=== PATIENT | male | born 1955 ===

== ENCOUNTER 2017-05-01 19:13 | Inpatient (IN) | payer OTHER ==
--- NOTE | 2017-05-01 20:14 | C.PDOC ---
History Of Present Illness 61 year old male presents to the ED c/o abdominal pain that started this afternoon, pain is mostly located in the lower quadrants B/L. Patient denies any nausea, vomit, dysuria, hematuria, CP, SOB, back pain. Time Seen by Provider: 05/01/17 20:16 Chief Complaint (Nursing): Abdominal Pain History Per: Patient History/Exam Limitations: no limitations Onset/Duration Of Symptoms: Hrs Current Symptoms Are (Timing): Still Present Location Of Pain/Discomfort: RLQ, LLQ Radiation Of Pain To:: None Quality Of Discomfort: "Pain" Associated Symptoms: denies: Fever, Nausea, Vomiting, Diarrhea, Back Pain, Urinary Symptoms Exacerbating Factors: None Alleviating Factors: None Recent travel outside of the [place]: No Additional History Per: Patient Past Medical History Reviewed: Historical Data, Nursing Documentation, Vital Signs Vital Signs: Last Vital Signs Temp 101.1 F H 05/01/17 23:19 Pulse 88 05/01/17 23:19 Resp 18 05/01/17 23:19 BP 122/70 05/01/17 23:19 Pulse Ox 97 05/01/17 23:19 - Medical History PMH: Kidney Stones Surgical History: No Surg Hx Family History: States: Unknown Family Hx - Social History Hx Alcohol Use: No Hx Substance Use: No - Immunization History Hx Tetanus Toxoid Vaccination: No Hx Influenza Vaccination: No Hx Pneumococcal Vaccination: No Review Of Systems Constitutional: Negative for: Fever, Chills Cardiovascular: Negative for: Chest Pain, Palpitations Respiratory: Negative for: Cough, Shortness of Breath Gastrointestinal: Positive for: Abdominal Pain. Negative for: Nausea, Vomiting , Diarrhea, Constipation Genitourinary: Negative for: Dysuria, Hematuria Musculoskeletal: Negative for: Back Pain Skin: Negative for: Rash Neurological: Negative for: Weakness, Numbness Physical Exam - Physical Exam Appears: Non-toxic, No Acute Distress Skin: Normal Color, Warm, Dry Head: Atraumatic, Normacephalic Eye(s): bilateral: Normal Inspection Nose: No Discharge, No Deformity Oral Mucosa: Moist Neck: Normal ROM, Supple Chest: Symmetrical Cardiovascular: Rhythm Regular, No Murmur Respiratory: Normal Breath Sounds, No Rales, No Rhonchi, No Wheezing Gastrointestinal/Abdominal: Soft, Tenderness (RLQ), No Guarding, No Rebound Back: No CVA Tenderness Extremity: Normal ROM, No Pedal Edema, No Calf Tenderness, No Deformity, No Swelling Neurological/Psych: Oriented x3, Normal Speech, Normal Cognition Gait: Steady ED Course And Treatment - Laboratory Results Result Diagrams: 05/01/17 20:26 05/01/17 20:26 O2 Sat by Pulse Oximetry: 100 (On RA) Pulse Ox Interpretation: Normal Medical Decision Making Medical Decision Making: Impression: abdominal pain Plan: * Labs * IV fluids * Blood culture * Urine culture * UA Disposition Discussed With DrJuan Antonio: Jerson Cooper Doctor Will See Patient In The: Hospital Counseled Patient/Family Regarding: Diagnosis - Disposition Disposition: HOSPITALIZED Disposition Time: 23:36 Condition: STABLE Forms: [facility] (Iranian) - POA Present On Arrival: None - Clinical Impression Clinical Impression: Abdominal pain, Diverticulitis of sigmoid colon - Scribe Statement The provider has reviewed the documentation as recorded by the Scribe Fermin Sierra All medical record entries made by the Scribe were at my direction and personally dictated by me. I have reviewed the chart and agree that the record accurately reflects my personal performance of the history, physical exam, medical decision making, and the department course for this patient. I have also personally directed, reviewed, and agree with the discharge instructions and disposition.
[2017-05-01] MEDS ORDERED: Sodium Chloride 0.9% 1,000 ML IV ONE ×2 (20:16→20:17)
[2017-05-01] MEDS ORDERED: Iohexol 240 (50 ml) PO ONE (20:19)
[2017-05-01] MEDS ORDERED: Piperacillin/Tazobact 3.375 gm 100 ML IVPB STA (20:20)
[2017-05-01 20:21] LABS: URINE BACTERIA RARE (<OCC); URINE BILIRUBIN NEGATIVE (NEGATIVE); URINE BLOOD NEGATIVE (NEGATIVE); URINE CLARITY Clear (Clear); URINE COLOR Yellow (YELLOW); URINE GLUCOSE (UA) NORMAL (Normal); URINE LEUKOCYTE ESTERASE NEG Leu/uL (Negative); URINE NITRATE NEGATIVE (NEGATIVE); URINE PROTEIN NEGATIVE (NEGATIVE)
[2017-05-01 20:30] LABS: BASO # 0.1 K/uL (0.0-0.2); BASO % 0.6 % (0.0-2.0); EOS % 0.3 % (0.0-4.0); HEMOGLOBIN 16.9 g/dL (12.0-18.0); LYMPH # 1.4 K/uL (1.0-4.3); LYMPH % 9.2 % (20.0-40.0); MEAN CELL VOLUME 87.7 fL (80.0-94.0); MEAN CORPUSCULAR HGB CONC 34.2 g/dL (33.0-37.0); MEAN PLATELET VOLUME 9.4 fL (7.2-11.7); MONO # 1.5 K/uL (0.0-0.8); MONO % 9.8 % (0.0-10.0); NEUT # 12.2 K/uL (1.8-7.0); NEUT % 80.1 % (50.0-75.0); NRBC % 0.1 % (0.0-2.0); PLATELET COUNT 209 K/uL (130-400); RBC 5.62 Mil/uL (4.40-5.90); WHITE BLOOD COUNT 15.2 K/uL (4.8-10.8)
[2017-05-01] MEDS ORDERED: Iohexol 240 (50 ml) ONE (20:34)
[2017-05-01] MEDS ORDERED: Sodium Chloride 0.9% 1,000 ML ONE (20:34)
[2017-05-01 20:44] LABS: ALB/GLOB RATIO 1.1 (1.0-2.1); ALBUMIN 4.3 g/dL (3.5-5.0); ALT/SGPT 59 U/L (21-72); AST/SGOT 29 U/L (17-59); BLOOD UREA NITROGEN 13 mg/dL (9-20); CALCIUM 9.7 mg/dl (8.6-10.4); GFR AFRICAN-AMERICAN > 60; GFR NON-AFRICAN AMERICAN > 60; LIPASE 172 U/L (23-300)
[2017-05-01 20:49] LABS: BANDS 1 % (0-2); LYMPHOCYTE 5 % (20-40); MONOCYTE 8 % (0-10); NEUTROPHIL 85 % (50-75); PLATELET ESTIMATE NORMAL (NORMAL); REACTIVE LYMPHOCYTES 1 % (0-0); TOTAL CELLS COUNTED 100
[2017-05-01] MEDS ORDERED: Iohexol 300 100 ML IJ ONE (20:58)
--- NOTE | 2017-05-01 23:20 | CT ---
EXAM: CT Abdomen and Pelvis With Intravenous Contrast EXAM DATE/TIME: 05/01/2017 8:18 PM CLINICAL HISTORY: 61 years old, male; Pain; Abdominal pain; Localized; Lower; Additional info: Abd pain TECHNIQUE: Axial computed tomography images of the abdomen and pelvis with intravenous contrast. All CT scans at this facility use one or more dose reduction techniques, viz.: automated exposure control; ma/kV adjustment per patient size (including targeted exams where dose is matched to indication; i.e. head); or iterative reconstruction technique. Coronal and sagittal reformatted images were created and reviewed. CONTRAST: 100 mL of omnipaque 300 administered intravenously. COMPARISON: There are no prior studies for comparison. FINDINGS: Lower thorax: Heart size is normal. There is a small hiatal hernia. There is minimal atelectasis/scarring at the lung bases. The there is a small hiatal hernia. ABDOMEN: Liver: unremarkable Gallbladder and bile ducts: unremarkable Pancreas: unremarkable Spleen: unremarkable Adrenals: Right adrenal is unremarkable. There is nodular thickening of the left adrenal. Kidneys and ureters: There is a small nonobstructing left renal stone. There is a low attenuation left renal lesion too small to characterize possibly small cyst.There is no pelvocaliectasis or ureterectasis. Stomach and bowel: Stomach is almost empty. Rotation is normal. There is a small duodenal diverticulum. There is no small bowel obstruction. Ileocecal region is unremarkable.Appendix and terminal ileum are unremarkable. Colon is incompletely distended. There is diverticulosis. There is sigmoid diverticulitis. There is inflammation and edema adjacent to the inflamed sigmoid loop. There is a small amount of mesenteric venous gas. There is no focal abscess. Appendix: See stomach and bowel PELVIS: Bladder: unremarkable Reproductive: Prostate is mildly enlarged. Seminal vesicles are unremarkable. ABDOMEN and PELVIS: Intraperitoneal space: There is no free air. There is free fluid in the left lower quadrant. Bones/joints: There are degenerative changes in the osseus structures. Soft tissues: unremarkable Vasculature: There are vascular calcifications. There is minimal mesenteric venous gas. Lymph nodes: There is no pathologic adenopathy. IMPRESSION: Sigmoid diverticulitis with a small amount of mesenteric venous gas Additional nonemergent findings as described above.
[2017-05-01] MEDS ORDERED: metroNIDAZOLE IV 500 mg/100 ml 500 MG/100 ML BAG IVPB SCH (23:30)
[2017-05-01] MEDS ORDERED: metroNIDAZOLE IV 500 mg/100 ml 500 MG/100 ML BAG ONE (23:31)
--- NOTE | 2017-05-01 23:56 | CP.PCM.HP ---
<Eugenia Gardner - Last Filed: 05/02/17 02:56> History of Present Illness - History of Present Illness History of Present Illness: Medicine Note for Hospitalist Service CC: Abdominal Pain x 2 days HPI: 61 Male with no significant PMHx presents to the ED with fever, chills, abdominal pain x 2 days. Patient reports he started to have intermittent , sharp, lower quadrant abdominal pain that started Sunday afternoon. Patient tried taking motrin with no pain relief. Patient admitted to feeling feverish, chills, loss of appetite, and abdominal pain. This has never happened to him before. Denied headache, chest pain, SOB, n/v/d/c, or urinary symptoms. PMHx: Denied PSHx: Denied Meds: Denied SHx: Denied x3 FHx: HTN in both his mother and father - both parents are PMD: None - last time went [facility] 3 years ago for routine visit- WNL HCM: Never had a colonoscopy Present on Admission - Present on Admission Any Indicators Present on Admission: No Past Patient History - Infectious Disease Hx of Infectious Diseases: None - Past Social History Smoking Status: Never Smoked - RENAL Hx Kidney Stones: Yes - PSYCHIATRIC Hx Substance Use: No - SURGICAL HISTORY Hx Surgeries: No - ANESTHESIA Hx Anesthesia: No Meds Allergies/Adverse Reactions: Allergies Allergy/AdvReac Type Severity Reaction Status Date / Time No Known Allergies Allergy Verified 05/01/17 19:51 Physical Exam - Constitutional Appears: No Acute Distress - Head Exam Head Exam: NORMAL INSPECTION, NORMOCEPHALIC - Eye Exam Eye Exam: EOMI, Normal appearance, PERRL Pupil Exam: NORMAL ACCOMODATION - ENT Exam ENT Exam: Mucous Membranes Moist, Normal Exam - Neck Exam Neck exam: Positive for: Normal Inspection - Respiratory Exam Respiratory Exam: Clear to Auscultation Bilateral, NORMAL BREATHING PATTERN - Cardiovascular Exam Cardiovascular Exam: REGULAR RHYTHM, RRR - GI/Abdominal Exam GI & Abdominal Exam: Normal Bowel Sounds, Soft, Tenderness (TTP RLQ, LLQ ). absent: Distended - Extremities Exam Extremities exam: Positive for: normal inspection, pedal pulses present. Negative for: pedal edema, tenderness - Neurological Exam Neurological exam: Alert, CN II-XII Intact, Oriented x3 - Psychiatric Exam Psychiatric exam: Normal Affect, Normal Mood - Skin Skin Exam: Diaphoretic, Normal Color, Warm Results - Vital Signs Recent Vital Signs: Last Vital Signs Temp 101.1 F H 05/01/17 23:19 Pulse 88 05/01/17 23:19 Resp 18 05/01/17 23:19 BP 122/70 05/01/17 23:19 Pulse Ox 100 05/01/17 23:37 - Labs Result Diagrams: 05/01/17 20:26 05/01/17 20:26 Labs: Laboratory Results - last 24 hr 05/01/17 05/01/17 05/01/17 20:11 20:26 20:26 WBC 15.2 H RBC 5.62 Hgb 16.9 Hct 49.3 MCV 87.7 MCH 30.0 MCHC 34.2 RDW 14.0 Plt Count 209 MPV 9.4 Neut % (Auto) 80.1 H Lymph % (Auto) 9.2 L [place] % (Auto) 9.8 Eos % (Auto) 0.3 Baso % (Auto) 0.6 Neut # 12.2 H Lymph # 1.4 [place] # 1.5 H Eos # 0.0 Baso # 0.1 Neutrophils % (Manual) 85 H Band Neutrophils % 1 Lymphocytes % (Manual) 5 L Reactive Lymphs % 1 H Monocytes % (Manual) 8 Platelet Estimate Normal RBC Morphology Normal Sodium 134 Potassium 4.0 Chloride 98 Carbon Dioxide 26 Anion Gap 14 BUN 13 Creatinine 1.1 Est GFR ( Amer) > 60 Est GFR (Non-Af Amer) > 60 Random Glucose 100 Calcium 9.7 Total Bilirubin 2.7 H AST 29 ALT 59 Alkaline Phosphatase 66 Total Protein 8.4 H Albumin 4.3 Globulin 4.1 H Albumin/Globulin Ratio 1.1 Lipase 172 Urine Color Yellow Urine Clarity Clear Urine pH 7.0 Ur Specific [place] 1.019 Urine Protein Negative Urine Glucose (UA) Normal Urine Ketones Trace Urine Blood Negative Urine Nitrate Negative Urine Bilirubin Negative Urine Urobilinogen 4.0 Ur Leukocyte Esterase Neg Urine WBC (Auto) 1 Urine RBC (Auto) 2 Ur Transition Epith Cell < 1 Urine Bacteria Rare Assessment & Plan - Assessment and Plan (Free Text) Assessment: 61 Male with no significant PMHx presents to the ED with fever, chills , abdominal pain x 2 days found to have sigmoid diverticulitis on CT scan. Plan: Sigmoid Diverticulitis General Surgery will be consulted Febrile, tachy, hypertensive, leukocytosis with left shift CT Scan Abdomen and Pelvis: Sigmoid diverticulitis with a small amount of mesenteric venous gas Meds: NPO, NS @ 125cc/hr Zofran, Morphine PRN, Tylenol PRN fever Cipro, Flagyl Mesenteric Venous Gas noted on CT Scan Prophylactic Measures GI PPX: Protonix 40mg IVP daily DVT PPX: SCDs, Heparin Q12 Florastor BID DW Eugenia Martin DO, PGY-1 <Jerson Cooper P - Last Filed: 05/02/17 06:44> Results - Vital Signs Recent Vital Signs: Last Vital Signs Temp 98.4 F 05/02/17 06:28 Pulse 73 05/02/17 06:28 Resp 18 05/02/17 06:28 BP 138/86 05/02/17 06:28 Pulse Ox 99 05/02/17 06:28 - Labs Result Diagrams: 05/02/17 05:31 05/02/17 05:31 Labs: Laboratory Results - last 24 hr 05/01/17 05/01/17 05/01/17 20:11 20:26 20:26 WBC 15.2 H RBC 5.62 Hgb 16.9 Hct 49.3 MCV 87.7 MCH 30.0 MCHC 34.2 RDW 14.0 Plt Count 209 MPV 9.4 Neut % (Auto) 80.1 H Lymph % (Auto) 9.2 L [place] % (Auto) 9.8 Eos % (Auto) 0.3 Baso % (Auto) 0.6 Neut # 12.2 H Lymph # 1.4 [place] # 1.5 H Eos # 0.0 Baso # 0.1 Neutrophils % (Manual) 85 H Band Neutrophils % 1 Lymphocytes % (Manual) 5 L Reactive Lymphs % 1 H Monocytes % (Manual) 8 Platelet Estimate Normal RBC Morphology Normal PT INR APTT Sodium 134 Potassium 4.0 Chloride 98 Carbon Dioxide 26 Anion Gap 14 BUN 13 Creatinine 1.1 Est GFR ( Amer) > 60 Est GFR (Non-Af Amer) > 60 Random Glucose 100 Calcium 9.7 Magnesium Total Bilirubin 2.7 H AST 29 ALT 59 Alkaline Phosphatase 66 Total Protein 8.4 H Albumin 4.3 Globulin 4.1 H Albumin/Globulin Ratio 1.1 Triglycerides Cholesterol LDL Cholesterol Direct HDL Cholesterol Lipase 172 Urine Color Yellow Urine Clarity Clear Urine pH 7.0 Ur Specific [place] 1.019 Urine Protein Negative Urine Glucose (UA) Normal Urine Ketones Trace Urine Blood Negative Urine Nitrate Negative Urine Bilirubin Negative Urine Urobilinogen 4.0 Ur Leukocyte Esterase Neg Urine WBC (Auto) 1 Urine RBC (Auto) 2 Ur Transition Epith Cell < 1 Urine Bacteria Rare 05/02/17 05/02/17 05/02/17 05:31 05:31 05:31 WBC 13.3 H RBC 5.13 Hgb 15.5 Hct 45.4 MCV 88.5 MCH 30.2 MCHC 34.1 RDW 13.7 Plt Count 158 MPV 9.5 Neut % (Auto) 76.2 H Lymph % (Auto) 12.9 L [place] % (Auto) 9.7 Eos % (Auto) 0.3 Baso % (Auto) 0.9 Neut # 10.1 H Lymph # 1.7 [place] # 1.3 H Eos # 0.0 Baso # 0.1 Neutrophils % (Manual) Band Neutrophils % Lymphocytes % (Manual) Reactive Lymphs % Monocytes % (Manual) Platelet Estimate RBC Morphology PT 13.9 H INR 1.2 APTT 33 Sodium 133 Potassium 4.2 Chloride 105 Carbon Dioxide 21 L Anion Gap 11 BUN 11 Creatinine 1.0 Est GFR ( Amer) > 60 Est GFR (Non-Af Amer) > 60 Random Glucose 98 Calcium 8.8 Magnesium 2.1 Total Bilirubin 2.2 H AST 25 ALT 46 Alkaline Phosphatase 49 Total Protein 7.0 Albumin 3.6 Globulin 3.4 Albumin/Globulin Ratio 1.1 Triglycerides 66 Cholesterol 137 LDL Cholesterol Direct 57 HDL Cholesterol 49 Lipase Urine Color Urine Clarity Urine pH Ur Specific [place] Urine Protein Urine Glucose (UA) Urine Ketones Urine Blood Urine Nitrate Urine Bilirubin Urine Urobilinogen Ur Leukocyte Esterase Urine WBC (Auto) Urine RBC (Auto) Ur Transition Epith Cell Urine Bacteria Attending/Attestation - Attestation I have personally seen and examined this patient.: Yes I have fully participated in the care of the patient.: Yes I have reviewed all pertinent clinical information: Yes Notes (Text): Assessment * Acute sigmoid diverticulitis with small mesenteric vein gas, likely sign of early micro-perforation Plan * NPO * IV abx, cipro, flagyl started * Surgery consult * GI/DVT prophylaxis * See orders for detail.
[2017-05-02] MEDS ORDERED: Morphine 4 MG/ML VIAL IVP PRN ×3 (00:40→02:48)
[2017-05-02] MEDS ORDERED: METRONIDAZOLE IVPB STA (02:44)
[2017-05-02] MEDS ORDERED: METRONIDAZOLE IVPB SCH ×2 (02:45→08:00)
[2017-05-02] MEDS: Sodium Chloride 0.9% 1,000 ML IV SCH ×4 (03:00→21:23)
[2017-05-02 05:34] LABS: BASO # 0.1 K/uL (0.0-0.2); BASO % 0.9 % (0.0-2.0); EOS % 0.3 % (0.0-4.0); HEMOGLOBIN 15.5 g/dL (12.0-18.0); LYMPH # 1.7 K/uL (1.0-4.3); LYMPH % 12.9 % (20.0-40.0); MEAN CELL VOLUME 88.5 fL (80.0-94.0); MEAN CORPUSCULAR HEMOGLOBIN 30.2 pg (27.0-31.0); MEAN CORPUSCULAR HGB CONC 34.1 g/dL (33.0-37.0); MEAN PLATELET VOLUME 9.5 fL (7.2-11.7); MONO # 1.3 K/uL (0.0-0.8); MONO % 9.7 % (0.0-10.0); NEUT # 10.1 K/uL (1.8-7.0); NEUT % 76.2 % (50.0-75.0); NRBC % 0.1 % (0.0-2.0); RBC 5.13 Mil/uL (4.40-5.90); RED CELL DISTRIBUTION WIDTH 13.7 % (11.5-14.5); WHITE BLOOD COUNT 13.3 K/uL (4.8-10.8)
[2017-05-02 05:42] LABS: INR 1.2; PROTHROMBIN TIME 13.9 SECONDS (9.7-12.2)
[2017-05-02 05:55] LABS: BLOOD UREA NITROGEN 11 mg/dL (9-20)
[2017-05-02 05:56] LABS: ALB/GLOB RATIO 1.1 (1.0-2.1); ALBUMIN 3.6 g/dL (3.5-5.0); ALT/SGPT 46 U/L (21-72); AST/SGOT 25 U/L (17-59); CALCIUM 8.8 mg/dl (8.6-10.4); GFR AFRICAN-AMERICAN > 60; GFR NON-AFRICAN AMERICAN > 60; HDL CHOLESTEROL 49 mg/dL (30-70); MAGNESIUM 2.1 mg/dL (1.6-2.3)
[2017-05-02 06:04] LABS: LDL CHOLESTEROL 57 mg/dL (0-129)
[2017-05-02] MEDS: Saccharomyces Boulardi 250 mg Cap PO SCH ×3 (07:13→18:19)
--- NOTE | 2017-05-02 07:43 | CP.PCM.PN ---
<Estrella Staley - Last Filed: 05/02/17 11:48> Subjective - Date & Time of Evaluation Date of Evaluation: 05/02/17 Time of Evaluation: 07:00 - Subjective Subjective: Medicine Progress Note: Patient was seen and examined at bedside in the AM. Patient states when he came to the ED his pain was a 10/10 in his pelvic area. Currently his pain is a 7/10. Patient states he has not had any food for the past day and half because he has not had an appetite. He states he had a fever overnight but currently denies a fever. He denies nausea, vomiting, diarrhea or constipation. Objective - Vital Signs/Intake and Output Vital Signs (last 24 hours): Temp Pulse Resp BP Pulse Ox 98.4 F 73 18 138/86 99 05/02/17 06:28 05/02/17 06:28 05/02/17 06:28 05/02/17 06:28 05/02/17 06:28 - Medications Medications: Current Medications Acetaminophen (Tylenol 325mg Tab) 650 mg PO Q6 PRN PRN Reason: Fever >100.4 F Heparin Sodium (Porcine) (Heparin) 5,000 units SC Q12 [facility] Sodium Chloride (Sodium Chloride 0.9%) 1,000 mls @ 125 mls/hr IV .Q8H [facility] Last Admin: 05/02/17 03:00 Dose: 125 mls/hr Metronidazole (Flagyl) 250 mg in 50 mls @ 100 mls/hr IVPB Q8 [facility] Ciprofloxacin (Cipro 400mg/200ml Dsw) 400 mg in 200 mls @ 133 mls/hr IVPB Q12H [facility] Morphine Sulfate (Morphine) 2 mg IVP Q4 PRN PRN Reason: Pain, severe (8-10) Morphine Sulfate (Morphine) 1 mg IVP Q4H PRN PRN Reason: Pain, moderate (4-7) Ondansetron HCl (Zofran Inj) 4 mg IVP Q6 PRN PRN Reason: Nausea/Vomiting Pantoprazole Sodium (Protonix Inj) 40 mg IVP DAILY [facility] Saccharomyces Boulardii (Florastor) 250 mg PO BID [facility] Last Admin: 05/02/17 07:13 Dose: 250 mg - Labs Labs: 05/02/17 05:31 05/02/17 05:31 PT 13.9 SECONDS (9.7-12.2) H 05/02/17 05:31 INR 1.2 05/02/17 05:31 APTT 33 SECONDS (21-34) 05/02/17 05:31 - Constitutional Appears: No Acute Distress (patient was sitting in the chair on the phone in no distress ) - Head Exam Head Exam: ATRAUMATIC, NORMAL INSPECTION - Eye Exam Eye Exam: EOMI, Normal appearance - ENT Exam ENT Exam: Mucous Membranes Moist - Respiratory Exam Respiratory Exam: Clear to Ausculation Bilateral, NORMAL BREATHING PATTERN. absent: Rales, Rhonchi, Wheezes, Stridor - Cardiovascular Exam Cardiovascular Exam: REGULAR RHYTHM, +S1, +S2 - GI/Abdominal Exam GI & Abdominal Exam: Soft, Tenderness (lower abdomen/pelvic area tenderness ), Normal Bowel Sounds - Extremities Exam Extremities Exam: Normal Inspection - Neurological Exam Neurological Exam: Alert, Awake, Oriented x3 - Psychiatric Exam Psychiatric exam: Normal Affect, Normal Mood Assessment and Plan - Assessment and Plan (Free Text) Assessment: 1.) Sigmoid Diverticulitis - Surgery Consult: Dr. Wright --> help appreciated - On admission patient was found to be Febrile, tachy, hypertensive, leukocytosis with left shift - Currently afebrile, HR 84, normotensive B/P 116/76; WBC 9.8 - Images * CT Scan Abdomen and Pelvis: Sigmoid diverticulitis with a small amount of mesenteric venous gas - Medications: * NPO, NS @ 125cc/hr * Zofran, Morphine PRN, * Tylenol PRN fever * Cipro 400mg * Flagyl 250mg 2.) Prophylactic Measures - GI PPX: Protonix 40mg IVP daily; Florastor BID - DVT PPX: SCDs, Heparin Q12 Case discussed with Dr. Stephanie Staley PGY-1 <Ciro Brown - Last Filed: 05/02/17 14:56> Objective - Vital Signs/Intake and Output Vital Signs (last 24 hours): Temp Pulse Resp BP Pulse Ox 98.8 F 80 18 149/79 97 05/02/17 14:19 05/02/17 14:19 05/02/17 14:19 05/02/17 14:19 05/02/17 14:19 - Medications Medications: Current Medications Acetaminophen (Tylenol 325mg Tab) 650 mg PO Q6 PRN PRN Reason: Fever >100.4 F Heparin Sodium (Porcine) (Heparin) 5,000 units SC Q12 [facility] Last Admin: 05/02/17 10:56 Dose: 5,000 units Sodium Chloride (Sodium Chloride 0.9%) 1,000 mls @ 125 mls/hr IV .Q8H [facility] Last Admin: 05/02/17 10:56 Dose: 125 mls/hr Metronidazole (Flagyl) 250 mg in 50 mls @ 100 mls/hr IVPB Q8 [facility] Last Admin: 05/02/17 10:30 Dose: 100 mls/hr Ciprofloxacin (Cipro 400mg/200ml Dsw) 400 mg in 200 mls @ 133 mls/hr IVPB Q12H [facility] Last Admin: 05/02/17 11:30 Dose: 133 mls/hr Morphine Sulfate (Morphine) 2 mg IVP Q4 PRN PRN Reason: Pain, severe (8-10) Morphine Sulfate (Morphine) 1 mg IVP Q4H PRN PRN Reason: Pain, moderate (4-7) Ondansetron HCl (Zofran Inj) 4 mg IVP Q6 PRN PRN Reason: Nausea/Vomiting Pantoprazole Sodium (Protonix Inj) 40 mg IVP DAILY [facility] Last Admin: 05/02/17 10:56 Dose: 40 mg Saccharomyces Boulardii (Florastor) 250 mg PO BID [facility] Last Admin: 05/02/17 10:55 Dose: 250 mg - Labs Labs: 05/02/17 05:31 05/02/17 05:31 PT 13.9 SECONDS (9.7-12.2) H 05/02/17 05:31 INR 1.2 05/02/17 05:31 APTT 33 SECONDS (21-34) 05/02/17 05:31 Attending/Attestation - Attestation I have personally seen and examined this patient.: Yes I have fully participated in the care of the patient.: Yes I have reviewed all pertinent clinical information, including history, physical exam and plan: Yes Notes (Text): 05/02/17 14:56 Medical attending: Patient was seen and examined by me, agrees the above note by medical device engineer. We came and saw the patient in the emergency room. He reported that he still having some abdominal discomfort. He described areas in the suprapubic area. He was not guarding, he did not have rebound the CT scan done yesterday suggested a small amount of mesenteric venous gas present. We are continuing the patient on intravenous fluids as well as IV Cipro and IV Flagyl. We are going to get a surgical evaluation, but hopefully nothing will have to be done and we can continue with conservative management Thank you very much, Ciro Brown
--- NOTE | 2017-05-02 09:08 | RAD ---
HISTORY: abd pain COMPARISON: No prior. TECHNIQUE: Chest PA and lateral FINDINGS: LUNGS: No active pulmonary disease. PLEURA: No significant pleural effusion identified. No pneumothorax apparent. CARDIOVASCULAR: Normal. OSSEOUS STRUCTURES: Degenerative changes. VISUALIZED UPPER ABDOMEN: Normal. OTHER FINDINGS: None. IMPRESSION: No active disease.
[2017-05-02] MEDS: Ciprofloxacin 400mg/200ml D5W 400 MG/200 ML BAG IVPB SCH ×2 (11:30→22:09)
--- NOTE | 2017-05-02 11:53 | CP.PCM.CON ---
History of Present Illness - History of Present Illness History of Present Illness: General Surgery Consult Note for Dr. Wright Reason for Consult: LLQ abdomnial pain 61 M presents to [facility] for complaint of mid-lower abdominal pain that radiated to his suprapubic area. The patient states that it began yesterday at 4 :30 pm while he was driving, when he suddenly experienced the pain followed by fevers and chills. The patient took Tylenol but the pain did not subside, so he decided to come to ED. The patient had 1 episode of diarrhea at midnight. He states that he had pain associated with his urination, in the suprapubic area. He states that there was no blood in this urine or stool. The patient states that his pain was a 10/10 upon admission, but currently is at a 5/10. He describes his pain as sharp and constant. He experiences relief while sitting up rather than laying down. The patient currently admits to mild abdominal pain , diarrhea, and dysuria, but denies fevers/chills, headache, chest pain, palpitations, cough, or difficulty breathing. CT imaging revealed inflammation and edema adjacent to an inflamed sigmoid loop, suggesting diverticulitis, with a small amount of mesenteric venous gas. PMH: kidney stones 10 years ago PSH: Denies FH: HTN in mother and father, mother from heart attack, father from brain cancer Medications: denies Allergies: denies Social: Drinks alcohol socially, denies tobacco or illicit drugs. Review of Systems - Review of Systems All systems: reviewed and no additional remarkable complaints except Past Patient History - Infectious Disease Hx of Infectious Diseases: None - Past Social History Smoking Status: Never Smoked - RENAL Hx Kidney Stones: Yes - PSYCHIATRIC Hx Substance Use: No - SURGICAL HISTORY Hx Surgeries: No - ANESTHESIA Hx Anesthesia: No Meds Allergies/Adverse Reactions: Allergies Allergy/AdvReac Type Severity Reaction Status Date / Time No Known Allergies Allergy Verified 05/01/17 19:51 - Medications Medications: Current Medications Acetaminophen (Tylenol 325mg Tab) 650 mg PO Q6 PRN PRN Reason: Fever >100.4 F Heparin Sodium (Porcine) (Heparin) 5,000 units SC Q12 [facility] Last Admin: 05/02/17 10:56 Dose: 5,000 units Sodium Chloride (Sodium Chloride 0.9%) 1,000 mls @ 125 mls/hr IV .Q8H [facility] Last Admin: 05/02/17 10:56 Dose: 125 mls/hr Metronidazole (Flagyl) 250 mg in 50 mls @ 100 mls/hr IVPB Q8 [facility] Last Admin: 05/02/17 10:30 Dose: 100 mls/hr Ciprofloxacin (Cipro 400mg/200ml Dsw) 400 mg in 200 mls @ 133 mls/hr IVPB Q12H [facility] Last Admin: 05/02/17 11:30 Dose: 133 mls/hr Morphine Sulfate (Morphine) 2 mg IVP Q4 PRN PRN Reason: Pain, severe (8-10) Morphine Sulfate (Morphine) 1 mg IVP Q4H PRN PRN Reason: Pain, moderate (4-7) Ondansetron HCl (Zofran Inj) 4 mg IVP Q6 PRN PRN Reason: Nausea/Vomiting Pantoprazole Sodium (Protonix Inj) 40 mg IVP DAILY [facility] Last Admin: 05/02/17 10:56 Dose: 40 mg Saccharomyces Boulardii (Florastor) 250 mg PO BID [facility] Last Admin: 05/02/17 10:55 Dose: 250 mg Physical Exam - Constitutional Appears: Well, No Acute Distress - Head Exam Head Exam: ATRAUMATIC, NORMAL INSPECTION, NORMOCEPHALIC - Eye Exam Eye Exam: EOMI, Normal appearance Pupil Exam: PERRL - ENT Exam ENT Exam: Mucous Membranes Moist - Respiratory Exam Respiratory Exam: NORMAL BREATHING PATTERN - Cardiovascular Exam Cardiovascular Exam: REGULAR RHYTHM, RRR, +S1, +S2 - GI/Abdominal Exam GI & Abdominal Exam: Distended, Hyperactive Bowel Sounds, Tenderness - Extremities Exam Extremities exam: Positive for: normal capillary refill, pedal pulses present. Negative for: calf tenderness - Back Exam Back exam: absent: CVA tenderness (L), CVA tenderness (R) - Neurological Exam Neurological exam: Alert, CN II-XII Intact, Oriented x3 - Psychiatric Exam Psychiatric exam: Normal Affect, Normal Mood - Skin Skin Exam: Dry, Intact, Normal Color, Warm Results - Vital Signs Recent Vital Signs: Last Vital Signs Temp 98.5 F 05/02/17 10:57 Pulse 75 05/02/17 10:57 Resp 18 05/02/17 10:57 BP 129/82 05/02/17 10:57 Pulse Ox 96 05/02/17 10:57 - Labs Result Diagrams: 05/02/17 05:31 05/02/17 05:31 Labs: Laboratory Results - last 24 hr 05/01/17 05/01/17 05/01/17 20:11 20:26 20:26 WBC 15.2 H RBC 5.62 Hgb 16.9 Hct 49.3 MCV 87.7 MCH 30.0 MCHC 34.2 RDW 14.0 Plt Count 209 MPV 9.4 Neut % (Auto) 80.1 H Lymph % (Auto) 9.2 L Ralls % (Auto) 9.8 Eos % (Auto) 0.3 Baso % (Auto) 0.6 Neut # 12.2 H Lymph # 1.4 Ralls # 1.5 H Eos # 0.0 Baso # 0.1 Neutrophils % (Manual) 85 H Band Neutrophils % 1 Lymphocytes % (Manual) 5 L Reactive Lymphs % 1 H Monocytes % (Manual) 8 Platelet Estimate Normal RBC Morphology Normal PT INR APTT Sodium 134 Potassium 4.0 Chloride 98 Carbon Dioxide 26 Anion Gap 14 BUN 13 Creatinine 1.1 Est GFR ( Amer) > 60 Est GFR (Non-Af Amer) > 60 Random Glucose 100 Hemoglobin A1c Calcium 9.7 Phosphorus Magnesium Total Bilirubin 2.7 H AST 29 ALT 59 Alkaline Phosphatase 66 Total Protein 8.4 H Albumin 4.3 Globulin 4.1 H Albumin/Globulin Ratio 1.1 Triglycerides Cholesterol LDL Cholesterol Direct HDL Cholesterol Lipase 172 Urine Color Yellow Urine Clarity Clear Urine pH 7.0 Ur Specific [place] 1.019 Urine Protein Negative Urine Glucose (UA) Normal Urine Ketones Trace Urine Blood Negative Urine Nitrate Negative Urine Bilirubin Negative Urine Urobilinogen 4.0 Ur Leukocyte Esterase Neg Urine WBC (Auto) 1 Urine RBC (Auto) 2 Ur Transition Epith Cell < 1 Urine Bacteria Rare 05/02/17 05/02/17 05/02/17 04:00 05:31 05:31 WBC 13.3 H RBC 5.13 Hgb 15.5 Hct 45.4 MCV 88.5 MCH 30.2 MCHC 34.1 RDW 13.7 Plt Count 158 MPV 9.5 Neut % (Auto) 76.2 H Lymph % (Auto) 12.9 L Ralls % (Auto) 9.7 Eos % (Auto) 0.3 Baso % (Auto) 0.9 Neut # 10.1 H Lymph # 1.7 Ralls # 1.3 H Eos # 0.0 Baso # 0.1 Neutrophils % (Manual) Band Neutrophils % Lymphocytes % (Manual) Reactive Lymphs % Monocytes % (Manual) Platelet Estimate RBC Morphology PT 13.9 H INR 1.2 APTT 33 Sodium Potassium Chloride Carbon Dioxide Anion Gap BUN Creatinine Est GFR ( Amer) Est GFR (Non-Af Amer) Random Glucose Hemoglobin A1c 5.7 Calcium Phosphorus Magnesium Total Bilirubin AST ALT Alkaline Phosphatase Total Protein Albumin Globulin Albumin/Globulin Ratio Triglycerides Cholesterol LDL Cholesterol Direct HDL Cholesterol Lipase Urine Color Urine Clarity Urine pH Ur Specific [place] Urine Protein Urine Glucose (UA) Urine Ketones Urine Blood Urine Nitrate Urine Bilirubin Urine Urobilinogen Ur Leukocyte Esterase Urine WBC (Auto) Urine RBC (Auto) Ur Transition Epith Cell Urine Bacteria 05/02/17 05:31 WBC RBC Hgb Hct MCV MCH MCHC RDW Plt Count MPV Neut % (Auto) Lymph % (Auto) Ralls % (Auto) Eos % (Auto) Baso % (Auto) Neut # Lymph # Ralls # Eos # Baso # Neutrophils % (Manual) Band Neutrophils % Lymphocytes % (Manual) Reactive Lymphs % Monocytes % (Manual) Platelet Estimate RBC Morphology PT INR APTT Sodium 133 Potassium 4.2 Chloride 105 Carbon Dioxide 21 L Anion Gap 11 BUN 11 Creatinine 1.0 Est GFR ( Amer) > 60 Est GFR (Non-Af Amer) > 60 Random Glucose 98 Hemoglobin A1c Calcium 8.8 Phosphorus 3.0 Magnesium 2.1 Total Bilirubin 2.2 H AST 25 ALT 46 Alkaline Phosphatase 49 Total Protein 7.0 Albumin 3.6 Globulin 3.4 Albumin/Globulin Ratio 1.1 Triglycerides 66 Cholesterol 137 LDL Cholesterol Direct 57 HDL Cholesterol 49 Lipase Urine Color Urine Clarity Urine pH Ur Specific [place] Urine Protein Urine Glucose (UA) Urine Ketones Urine Blood Urine Nitrate Urine Bilirubin Urine Urobilinogen Ur Leukocyte Esterase Urine WBC (Auto) Urine RBC (Auto) Ur Transition Epith Cell Urine Bacteria Assessment & Plan - Assessment and Plan (Free Text) Assessment: 61 M presents with LLQ abdominal pain, CT reveals Diverticulitis Plan: -NPO -Iv Fluids -IV antibiotics - Certriaxone/metronidazole -Analgesics/Anti-emetics -Serial abd exams -DVT/GI ppx -Discussed with Dr. Adriana Fox PGY1 - Date & Time Date: 05/02/17 Time: 19:04
[2017-05-02 16:20] VITALS: RESP 20
[2017-05-02] MEDS: metroNIDAZOLE IV 500 mg/100 ml 500 MG/100 ML BAG IVPB SCH (21:21)
[2017-05-03] MEDS: Sodium Chloride 0.9% 1,000 ML IV SCH ×3 (02:02→21:04)
[2017-05-03] MEDS: metroNIDAZOLE IV 500 mg/100 ml 500 MG/100 ML BAG IVPB SCH ×3 (05:15→21:00)
[2017-05-03 08:31] LABS: BASO % 0.5 % (0.0-2.0); EOS # 0.1 K/uL (0.0-0.7); EOS % 0.5 % (0.0-4.0); HEMOGLOBIN 15.2 g/dL (12.0-18.0); LYMPH # 1.2 K/uL (1.0-4.3); LYMPH % 11.7 % (20.0-40.0); MEAN CELL VOLUME 88.3 fL (80.0-94.0); MEAN CORPUSCULAR HEMOGLOBIN 30.7 pg (27.0-31.0); MEAN CORPUSCULAR HGB CONC 34.7 g/dL (33.0-37.0); MEAN PLATELET VOLUME 9.9 fL (7.2-11.7); MONO # 1.1 K/uL (0.0-0.8); MONO % 10.5 % (0.0-10.0); NEUT % 76.8 % (50.0-75.0); RBC 4.97 Mil/uL (4.40-5.90); RED CELL DISTRIBUTION WIDTH 13.6 % (11.5-14.5); WHITE BLOOD COUNT 10.4 K/uL (4.8-10.8)
[2017-05-03 08:51] LABS: ALB/GLOB RATIO 1.1 (1.0-2.1); ALBUMIN 3.6 g/dL (3.5-5.0); ALT/SGPT 44 U/L (21-72); AST/SGOT 26 U/L (17-59); BLOOD UREA NITROGEN 11 mg/dL (9-20); CALCIUM 8.7 mg/dl (8.6-10.4); GFR AFRICAN-AMERICAN > 60; GFR NON-AFRICAN AMERICAN > 60
[2017-05-03] MEDS: Saccharomyces Boulardi 250 mg Cap PO SCH ×2 (10:07→17:37)
[2017-05-03] MEDS: Ciprofloxacin 400mg/200ml D5W 400 MG/200 ML BAG IVPB SCH ×2 (10:08→21:01)
--- NOTE | 2017-05-03 10:32 | CP.PCM.PN ---
Subjective - Date & Time of Evaluation Date of Evaluation: 05/03/17 Time of Evaluation: 06:55 - Subjective Subjective: General surgery progress note for Dr. Jacques Can, PGY-1 Pt S & E at bedside this AM. Pt repors ab pain decreased. Admits to flatus. Denies N & V, F & C, BM, other complaints. Febrile overnight, Tmax 100.4. Objective - Vital Signs/Intake and Output Vital Signs (last 24 hours): Temp Pulse Resp BP Pulse Ox 98.4 F 71 20 128/80 96 05/03/17 00:00 05/03/17 00:00 05/03/17 00:00 05/03/17 00:00 05/03/17 00:00 Intake and Output: 05/03/17 05/03/17 06:59 18:59 Intake Total 1000 1000 Balance 1000 1000 - Medications Medications: Current Medications Acetaminophen (Tylenol 325mg Tab) 650 mg PO Q6 PRN PRN Reason: Fever >100.4 F Last Admin: 05/02/17 19:58 Dose: 650 mg Heparin Sodium (Porcine) (Heparin) 5,000 units SC Q12 [facility] Last Admin: 05/03/17 10:07 Dose: 5,000 units Sodium Chloride (Sodium Chloride 0.9%) 1,000 mls @ 125 mls/hr IV .Q8H [facility] Last Admin: 05/03/17 02:02 Dose: Not Given Ciprofloxacin (Cipro 400mg/200ml Dsw) 400 mg in 200 mls @ 133 mls/hr IVPB Q12H [facility] Last Admin: 05/03/17 10:08 Dose: 133 mls/hr Metronidazole (Flagyl) 500 mg in 100 mls @ 100 mls/hr IVPB Q8 [facility] Last Admin: 05/03/17 05:15 Dose: 100 mls/hr Morphine Sulfate (Morphine) 2 mg IVP Q4 PRN PRN Reason: Pain, severe (8-10) Morphine Sulfate (Morphine) 1 mg IVP Q4H PRN PRN Reason: Pain, moderate (4-7) Ondansetron HCl (Zofran Inj) 4 mg IVP Q6 PRN PRN Reason: Nausea/Vomiting Pantoprazole Sodium (Protonix Inj) 40 mg IVP DAILY [facility] Last Admin: 05/03/17 10:07 Dose: 40 mg Pneumococcal Polyvalent Vaccine (Pneumovax 23 Vaccine) 0.5 ml IM .ONCE ONE Stop: 05/05/17 10:01 Saccharomyces Boulardii (Florastor) 250 mg PO BID [facility] Last Admin: 05/03/17 10:07 Dose: 250 mg - Labs Labs: 05/03/17 08:10 05/03/17 08:10 PT 13.9 SECONDS (9.7-12.2) H 05/02/17 05:31 INR 1.2 05/02/17 05:31 APTT 33 SECONDS (21-34) 05/02/17 05:31 - Constitutional Appears: Non-toxic, No Acute Distress - Head Exam Head Exam: ATRAUMATIC, NORMAL INSPECTION, NORMOCEPHALIC - Eye Exam Eye Exam: EOMI, Normal appearance - ENT Exam ENT Exam: Mucous Membranes Moist, Normal Exam - Neck Exam Neck Exam: Full ROM, Normal Inspection - Respiratory Exam Respiratory Exam: NORMAL BREATHING PATTERN - Cardiovascular Exam Cardiovascular Exam: REGULAR RHYTHM, +S1, +S2 - GI/Abdominal Exam GI & Abdominal Exam: Soft. absent: Distended, Firm, Guarding, Rigid, Tenderness , Rebound - Extremities Exam Extremities Exam: Normal Inspection - Neurological Exam Neurological Exam: Alert, Awake, CN II-XII Intact, Oriented x3 - Psychiatric Exam Psychiatric exam: Normal Affect, Normal Mood - Skin Skin Exam: Dry, Intact, Normal Color, Warm Assessment and Plan - Assessment and Plan (Free Text) Assessment: 61M w/ab pain 2/2 diverticulitis Plan: Cont NPO Cont IVF Cont IV Abx Anti-emetic PRN Cont pain mgmt Serial ab exams OOBTC Ambulate Further mgmt as per primary team Will DW attending Pamella, PGY-1
--- NOTE | 2017-05-03 14:44 | CP.PCM.PN ---
<Estrella Staley - Last Filed: 05/03/17 14:40> Subjective - Date & Time of Evaluation Date of Evaluation: 05/03/17 Time of Evaluation: 07:00 - Subjective Subjective: Medicine Progress Note: Patient was seen and examined at bedside in the AM. Patient states he still has moderate lower pelvic pain when he passes flatus. Patient denies nausea, vomiting, fever, diarrhea or constipation. Objective - Vital Signs/Intake and Output Vital Signs (last 24 hours): Temp Pulse Resp BP Pulse Ox 98.4 F 71 20 128/80 96 05/03/17 00:00 05/03/17 00:00 05/03/17 00:00 05/03/17 00:00 05/03/17 00:00 Intake and Output: 05/03/17 05/03/17 06:59 18:59 Intake Total 1000 1000 Balance 1000 1000 - Medications Medications: Current Medications Acetaminophen (Tylenol 325mg Tab) 650 mg PO Q6 PRN PRN Reason: Fever >100.4 F Last Admin: 05/02/17 19:58 Dose: 650 mg Heparin Sodium (Porcine) (Heparin) 5,000 units SC Q12 [facility] Last Admin: 05/03/17 10:07 Dose: 5,000 units Sodium Chloride (Sodium Chloride 0.9%) 1,000 mls @ 125 mls/hr IV .Q8H [facility] Last Admin: 05/03/17 02:02 Dose: Not Given Ciprofloxacin (Cipro 400mg/200ml Dsw) 400 mg in 200 mls @ 133 mls/hr IVPB Q12H [facility] Last Admin: 05/03/17 10:08 Dose: 133 mls/hr Metronidazole (Flagyl) 500 mg in 100 mls @ 100 mls/hr IVPB Q8 [facility] Last Admin: 05/03/17 14:14 Dose: 100 mls/hr Morphine Sulfate (Morphine) 2 mg IVP Q4 PRN PRN Reason: Pain, severe (8-10) Morphine Sulfate (Morphine) 1 mg IVP Q4H PRN PRN Reason: Pain, moderate (4-7) Ondansetron HCl (Zofran Inj) 4 mg IVP Q6 PRN PRN Reason: Nausea/Vomiting Pantoprazole Sodium (Protonix Inj) 40 mg IVP DAILY [facility] Last Admin: 05/03/17 10:07 Dose: 40 mg Pneumococcal Polyvalent Vaccine (Pneumovax 23 Vaccine) 0.5 ml IM .ONCE ONE Stop: 05/05/17 10:01 Saccharomyces Boulardii (Florastor) 250 mg PO BID [facility] Last Admin: 05/03/17 10:07 Dose: 250 mg - Labs Labs: 05/03/17 08:10 05/03/17 08:10 PT 13.9 SECONDS (9.7-12.2) H 05/02/17 05:31 INR 1.2 05/02/17 05:31 APTT 33 SECONDS (21-34) 05/02/17 05:31 - Constitutional Appears: No Acute Distress - Head Exam Head Exam: ATRAUMATIC, NORMAL INSPECTION - Eye Exam Eye Exam: EOMI, Normal appearance - ENT Exam ENT Exam: Mucous Membranes Moist - Respiratory Exam Respiratory Exam: Clear to Ausculation Bilateral, NORMAL BREATHING PATTERN - Cardiovascular Exam Cardiovascular Exam: REGULAR RHYTHM, +S1, +S2 - GI/Abdominal Exam GI & Abdominal Exam: Soft, Tenderness (lower pelvic tenderness ), Normal Bowel Sounds - Extremities Exam Extremities Exam: Normal Inspection - Neurological Exam Neurological Exam: Alert, Awake, Oriented x3 - Psychiatric Exam Psychiatric exam: Normal Affect, Normal Mood - Skin Skin Exam: Normal Color, Warm Assessment and Plan - Assessment and Plan (Free Text) Assessment: 1.) Sigmoid Diverticulitis - Surgery Consult: Dr. Wright --> help appreciated - On admission patient was found to be Febrile, tachy, hypertensive, leukocytosis with left shift - Currently afebrile, HR 84, normotensive B/P 116/76; WBC 9.8 - Images * CT Scan Abdomen and Pelvis: Sigmoid diverticulitis with a small amount of mesenteric venous gas - Medications: * Clear Liquid Diet * NS @ 125cc/hr * Zofran, * Morphine 1mg prn for moderate pain * Tylenol PRN fever * Cipro 400mg * Flagyl 250mg * Florastor 250mg po bid 2.) Prophylactic Measures - GI PPX: Protonix 40mg IVP daily; Florastor BID - DVT PPX: SCDs, Heparin Q12 Case discussed with Dr. Stephanie Staley PGY-1 <Ciro Brown - Last Filed: 05/03/17 18:06> Objective - Vital Signs/Intake and Output Vital Signs (last 24 hours): Temp Pulse Resp BP Pulse Ox 98.5 F 74 20 141/82 96 05/03/17 16:00 05/03/17 16:00 05/03/17 16:00 05/03/17 16:00 05/03/17 16:00 Intake and Output: 05/03/17 05/03/17 06:59 18:59 Intake Total 1000 2700 Balance 1000 2700 - Medications Medications: Current Medications Acetaminophen (Tylenol 325mg Tab) 650 mg PO Q6 PRN PRN Reason: Fever >100.4 F Last Admin: 05/02/17 19:58 Dose: 650 mg Heparin Sodium (Porcine) (Heparin) 5,000 units SC Q12 [facility] Last Admin: 05/03/17 10:07 Dose: 5,000 units Sodium Chloride (Sodium Chloride 0.9%) 1,000 mls @ 125 mls/hr IV .Q8H [facility] Last Admin: 05/03/17 02:02 Dose: Not Given Ciprofloxacin (Cipro 400mg/200ml Dsw) 400 mg in 200 mls @ 133 mls/hr IVPB Q12H [facility] Last Admin: 05/03/17 10:08 Dose: 133 mls/hr Metronidazole (Flagyl) 500 mg in 100 mls @ 100 mls/hr IVPB Q8 [facility] Last Admin: 05/03/17 14:14 Dose: 100 mls/hr Morphine Sulfate (Morphine) 2 mg IVP Q4 PRN PRN Reason: Pain, severe (8-10) Morphine Sulfate (Morphine) 1 mg IVP Q4H PRN PRN Reason: Pain, moderate (4-7) Ondansetron HCl (Zofran Inj) 4 mg IVP Q6 PRN PRN Reason: Nausea/Vomiting Pantoprazole Sodium (Protonix Inj) 40 mg IVP DAILY [facility] Last Admin: 05/03/17 10:07 Dose: 40 mg Pneumococcal Polyvalent Vaccine (Pneumovax 23 Vaccine) 0.5 ml IM .ONCE ONE Stop: 05/05/17 10:01 Saccharomyces Boulardii (Florastor) 250 mg PO BID [facility] Last Admin: 05/03/17 17:37 Dose: 250 mg - Labs Labs: 05/03/17 08:10 05/03/17 08:10 PT 13.9 SECONDS (9.7-12.2) H 05/02/17 05:31 INR 1.2 05/02/17 05:31 APTT 33 SECONDS (21-34) 05/02/17 05:31 Attending/Attestation - Attestation I have personally seen and examined this patient.: Yes I have fully participated in the care of the patient.: Yes I have reviewed all pertinent clinical information, including history, physical exam and plan: Yes Notes (Text): 05/03/17 18:06 Medical attending: Patient was seen and examined by me, I saw the patient with the medical sales representative. I reviewed the above note by the medical sales representative and agree. The patient had some family members in the room, the patient was okay with this he explained that he felt much better than when he was admitted yesterday. He did feel hungry we asked him if he felt ready to start a diet he said yes. We' ll start clear liquid diet for the time being. We cautioned him that if he has trouble with it to stop eating In the meantime were giving continue with the IV Cipro and IV Flagyl. And also intravenous fluids. The blood cultures have been negative for 24 hours, urine cultures also negative as well. He has not had a fever for the past 24 hours. thank you, Ciro Brown
[2017-05-04] MEDS: Sodium Chloride 0.9% 1,000 ML IV SCH ×3 (00:45→09:46)
[2017-05-04] MEDS: metroNIDAZOLE IV 500 mg/100 ml 500 MG/100 ML BAG IVPB SCH ×2 (05:18→14:18)
--- NOTE | 2017-05-04 07:04 | CP.PCM.PN ---
Objective - Vital Signs/Intake and Output Vital Signs (last 24 hours): Temp Pulse Resp BP Pulse Ox 99 F 74 20 128/77 95 05/04/17 00:00 05/04/17 00:00 05/04/17 00:00 05/04/17 00:00 05/04/17 00:00 Intake and Output: 05/04/17 05/04/17 06:59 18:59 Intake Total 1800 Balance 1800 - Medications Medications: Current Medications Acetaminophen (Tylenol 325mg Tab) 650 mg PO Q6 PRN PRN Reason: Fever >100.4 F Last Admin: 05/02/17 19:58 Dose: 650 mg Heparin Sodium (Porcine) (Heparin) 5,000 units SC Q12 [facility] Last Admin: 05/03/17 21:00 Dose: 5,000 units Sodium Chloride (Sodium Chloride 0.9%) 1,000 mls @ 125 mls/hr IV .Q8H [facility] Last Admin: 05/04/17 05:20 Dose: 125 mls/hr Ciprofloxacin (Cipro 400mg/200ml Dsw) 400 mg in 200 mls @ 133 mls/hr IVPB Q12H [facility] Last Admin: 05/03/17 21:01 Dose: 133 mls/hr Metronidazole (Flagyl) 500 mg in 100 mls @ 100 mls/hr IVPB Q8 [facility] Last Admin: 05/04/17 05:18 Dose: 100 mls/hr Morphine Sulfate (Morphine) 2 mg IVP Q4 PRN PRN Reason: Pain, severe (8-10) Morphine Sulfate (Morphine) 1 mg IVP Q4H PRN PRN Reason: Pain, moderate (4-7) Ondansetron HCl (Zofran Inj) 4 mg IVP Q6 PRN PRN Reason: Nausea/Vomiting Pantoprazole Sodium (Protonix Inj) 40 mg IVP DAILY [facility] Last Admin: 05/03/17 10:07 Dose: 40 mg Pneumococcal Polyvalent Vaccine (Pneumovax 23 Vaccine) 0.5 ml IM .ONCE ONE Stop: 05/05/17 10:01 Saccharomyces Boulardii (Florastor) 250 mg PO BID [facility] Last Admin: 05/03/17 17:37 Dose: 250 mg - Labs Labs: 05/03/17 08:10 05/03/17 08:10 PT 13.9 SECONDS (9.7-12.2) H 05/02/17 05:31 INR 1.2 05/02/17 05:31 APTT 33 SECONDS (21-34) 05/02/17 05:31
[2017-05-04 08:01] LABS: BASO % 0.4 % (0.0-2.0); EOS # 0.1 K/uL (0.0-0.7); EOS % 1.3 % (0.0-4.0); HEMOGLOBIN 15.5 g/dL (12.0-18.0); LYMPH # 0.7 K/uL (1.0-4.3); LYMPH % 10.2 % (20.0-40.0); MEAN CORPUSCULAR HEMOGLOBIN 31.3 pg (27.0-31.0); MEAN CORPUSCULAR HGB CONC 35.6 g/dL (33.0-37.0); MEAN PLATELET VOLUME 9.9 fL (7.2-11.7); MONO % 14.5 % (0.0-10.0); NEUT # 4.9 K/uL (1.8-7.0); NEUT % 73.6 % (50.0-75.0); NRBC % 0.2 % (0.0-2.0); RBC 4.95 Mil/uL (4.40-5.90); RED CELL DISTRIBUTION WIDTH 13.5 % (11.5-14.5); WHITE BLOOD COUNT 6.7 K/uL (4.8-10.8)
[2017-05-04 08:11] LABS: ALB/GLOB RATIO 1.1 (1.0-2.1); ALBUMIN 3.5 g/dL (3.5-5.0); ALT/SGPT 57 U/L (21-72); AST/SGOT 49 U/L (17-59); BLOOD UREA NITROGEN 10 mg/dL (9-20); CALCIUM 9.1 mg/dl (8.6-10.4); GFR AFRICAN-AMERICAN > 60; GFR NON-AFRICAN AMERICAN 57; MAGNESIUM 1.9 mg/dL (1.6-2.3)
[2017-05-04] MEDS: Saccharomyces Boulardi 250 mg Cap PO SCH (09:47)
[2017-05-04] MEDS: Ciprofloxacin 400mg/200ml D5W 400 MG/200 ML BAG IVPB SCH (09:48)
--- NOTE | 2017-05-04 14:38 | CP.PCM.DIS ---
<Estrella Staley - Last Filed: 05/04/17 19:05> Provider - Provider Date of Admission: 05/01/17 23:38 Attending physician: Ciro Brown DO Time Spent in preparation of Discharge (in minutes): 40 Hospital Course - Lab Results Lab Results: Micro Results 05/01/17 20:10 Blood Blood Culture - Preliminary NO GROWTH AFTER 48 HOURS 05/01/17 20:40 Blood Blood Culture - Preliminary NO GROWTH AFTER 48 HOURS 05/01/17 20:15 Urine Urine Culture - Final No Growth (<1,000 CFU/ML) Most Recent Lab Values WBC 6.7 K/uL (4.8-10.8) 05/04/17 07:12 RBC 4.95 Mil/uL (4.40-5.90) 05/04/17 07:12 Hgb 15.5 g/dL (12.0-18.0) 05/04/17 07:12 Hct 43.5 % (35.0-51.0) 05/04/17 07:12 MCV 88.0 fL (80.0-94.0) 05/04/17 07:12 MCH 31.3 pg (27.0-31.0) H 05/04/17 07:12 MCHC 35.6 g/dL (33.0-37.0) 05/04/17 07:12 RDW 13.5 % (11.5-14.5) 05/04/17 07:12 Plt Count 174 K/uL (130-400) 05/04/17 07:12 MPV 9.9 fL (7.2-11.7) 05/04/17 07:12 Neut % (Auto) 73.6 % (50.0-75.0) 05/04/17 07:12 Lymph % (Auto) 10.2 % (20.0-40.0) L 05/04/17 07:12 [place] % (Auto) 14.5 % (0.0-10.0) H 05/04/17 07:12 Eos % (Auto) 1.3 % (0.0-4.0) 05/04/17 07:12 Baso % (Auto) 0.4 % (0.0-2.0) 05/04/17 07:12 Neut # 4.9 K/uL (1.8-7.0) 05/04/17 07:12 Lymph # 0.7 K/uL (1.0-4.3) L 05/04/17 07:12 [place] # 1.0 K/uL (0.0-0.8) H 05/04/17 07:12 Eos # 0.1 K/uL (0.0-0.7) 05/04/17 07:12 Baso # 0.0 K/uL (0.0-0.2) 05/04/17 07:12 Neutrophils % (Manual) 85 % (50-75) H 05/01/17 20:26 Band Neutrophils % 1 % (0-2) 05/01/17 20:26 Lymphocytes % (Manual) 5 % (20-40) L 05/01/17 20:26 Reactive Lymphs % 1 % (0-0) H 05/01/17 20:26 Monocytes % (Manual) 8 % (0-10) 05/01/17 20:26 Platelet Estimate Normal (NORMAL) 05/01/17 20:26 RBC Morphology Normal 05/01/17 20:26 PT 13.9 SECONDS (9.7-12.2) H 05/02/17 05:31 INR 1.2 05/02/17 05:31 APTT 33 SECONDS (21-34) 05/02/17 05:31 Sodium 134 mmol/L (132-148) 05/04/17 07:12 Potassium 4.1 mmol/L (3.6-5.2) 05/04/17 07:12 Chloride 101 mmol/L (98-107) 05/04/17 07:12 Carbon Dioxide 27 mmol/L (22-30) 05/04/17 07:12 Anion Gap 9 (10-20) L 05/04/17 07:12 BUN 10 mg/dL (9-20) 05/04/17 07:12 Creatinine 1.3 mg/dL (0.8-1.5) 05/04/17 07:12 Est GFR ( Amer) > 60 05/04/17 07:12 Est GFR (Non-Af Amer) 57 05/04/17 07:12 Random Glucose 100 mg/dL (75-110) 05/04/17 07:12 Hemoglobin A1c 5.7 % (4.2-6.5) 05/02/17 04:00 Calcium 9.1 mg/dl (8.6-10.4) 05/04/17 07:12 Phosphorus 2.5 mg/dL (2.5-4.5) 05/04/17 07:12 Magnesium 1.9 mg/dL (1.6-2.3) 05/04/17 07:12 Total Bilirubin 1.3 mg/dL (0.2-1.3) 05/04/17 07:12 AST 49 U/L (17-59) 05/04/17 07:12 ALT 57 U/L (21-72) 05/04/17 07:12 Alkaline Phosphatase 53 U/L (38-126) 05/04/17 07:12 Total Protein 6.9 g/dL (6.3-8.3) 05/04/17 07:12 Albumin 3.5 g/dL (3.5-5.0) 05/04/17 07:12 Globulin 3.3 gm/dL (2.2-3.9) 05/04/17 07:12 Albumin/Globulin Ratio 1.1 (1.0-2.1) 05/04/17 07:12 Triglycerides 66 mg/dL (0-149) 05/02/17 05:31 Cholesterol 137 mg/dL (0-199) 05/02/17 05:31 LDL Cholesterol Direct 57 mg/dL (0-129) 05/02/17 05:31 HDL Cholesterol 49 mg/dL (30-70) 05/02/17 05:31 Lipase 172 U/L (23-300) 05/01/17 20:26 Urine Color Yellow (YELLOW) 05/01/17 20:11 Urine Clarity Clear (Clear) 05/01/17 20:11 Urine pH 7.0 (5.0-8.0) 05/01/17 20:11 Ur Specific [place] 1.019 (1.003-1.030) 05/01/17 20:11 Urine Protein Negative mg/dL (NEGATIVE) 05/01/17 20:11 Urine Glucose (UA) Normal mg/dL (Normal) 05/01/17 20:11 Urine Ketones Trace mg/dL (NEGATIVE) 05/01/17 20:11 Urine Blood Negative (NEGATIVE) 05/01/17 20:11 Urine Nitrate Negative (NEGATIVE) 05/01/17 20:11 Urine Bilirubin Negative (NEGATIVE) 05/01/17 20:11 Urine Urobilinogen 4.0 mg/dL (0.2-1.0) 05/01/17 20:11 Ur Leukocyte Esterase Neg Olivia/uL (Negative) 05/01/17 20:11 Urine WBC (Auto) 1 /hpf (0-5) 05/01/17 20:11 Urine RBC (Auto) 2 /hpf (0-3) 05/01/17 20:11 Ur Transition Epith Cell < 1 /hpf (0-3) 05/01/17 20:11 Urine Bacteria Rare (<OCC) 05/01/17 20:11 - Hospital Course Hospital Course: CC: Abdominal Pain x 2 days HPI: 61 Male with no significant PMHx presents to the ED with fever, chills, abdominal pain x 2 days. Patient reports he started to have intermittent , sharp, lower quadrant abdominal pain that started Sunday afternoon. Patient tried taking motrin with no pain relief. Patient admitted to feeling feverish, chills, loss of appetite, and abdominal pain. This has never happened to him before. Denied headache, chest pain, SOB, n/v/d/c, or urinary symptoms. PMHx: Denied PSHx: Denied Meds: Denied SHx: Denied x3 FHx: HTN in both his mother and father - both parents are PMD: None - last time went [facility] 3 years ago for routine visit- WN HCM: Never had a colonoscopy Hospital Course: Patient was admitted for sigmoid diverticulitis. Abdomen/Pelvis CT showed sigmoid diverticulitis with a small amount of mesenteric venous gas. Dr. Wright ( surgery) was consulted. Blood cultures showed no growth after 48 hours. Patient given Zofran for nausea, morphine prn for pain, Tylenol for fever, Cipro 400 mg , Flagyl 250 mg, and Florastor 250 mg. Patient placed on NPO upon admission, but diet was advanced to clear liquid followed by regular which was tolerated. Patient's fever, tachycardia, leukocytosis have resolved. Patient's abdominal pain has mostly resolved. Patient advised to get a colonoscopy in near future. This is a summary of patient's hospital course, please see chart for full details. Patient is stable for discharge per Dr. Brown. Patient to continue these medications for 4 more days: Ciprofloxacin 500mg one tablet twice per day Flagyl 750mg one tablet three times per day. Please take an over the counter stool softener. Please take an over the counter probiotic. Please schedule follow up at either one of the following clinics or with a primary care doctor in the next 7 to 10 days, as they will be your primary care providers to help coordinate your care: [facility] located at [facility] [address], [address] in [place], [place] by calling [phone] for an appointment. [facility] located at [address] [place] [address] by calling for an appointment. Please return to the the emergency room if symptoms return. Discharge Exam - Head Exam Head Exam: ATRAUMATIC, NORMAL INSPECTION, NORMOCEPHALIC - Eye Exam Eye Exam: EOMI, Normal appearance - ENT Exam ENT Exam: Mucous Membranes Moist - Respiratory Exam Respiratory Exam: Clear to PA & Lateral, NORMAL BREATHING PATTERN - Cardiovascular Exam Cardiovascular Exam: REGULAR RHYTHM, +S1, +S2 - GI/Abdominal Exam GI & Abdominal Exam: Normal Bowel Sounds, Soft. absent: Distended, Firm, Guarding, Tenderness - Extremities Exam Extremities exam: normal inspection - Neurological Exam Neurological exam: Alert, Oriented x3 - Psychiatric Exam Psychiatric exam: Normal Affect, Normal Mood - Skin Skin Exam: Normal Color, Warm Discharge Plan - Discharge Medications Prescriptions: Ciprofloxacin HCl [Cipro] 500 mg PO BID #8 tablet Metronidazole [Flagyl] 750 mg PO TID #12 tablet - Follow Up Plan Condition: STABLE Disposition: HOME/ ROUTINE Instructions: Ciprofloxacin (By mouth), Metronidazole (By mouth), Diverticulitis (DC) Referrals: Veronica Mirza MD [Staff Provider] - <Ciro Brown - Last Filed: 05/05/17 07:36> Provider - Provider Date of Admission: 05/01/17 23:38 Attending physician: Ciro Brown, Hospital Course - Lab Results Lab Results: Micro Results 05/01/17 20:10 Blood Blood Culture - Preliminary NO GROWTH AFTER 48 HOURS 05/01/17 20:40 Blood Blood Culture - Preliminary NO GROWTH AFTER 48 HOURS 05/01/17 20:15 Urine Urine Culture - Final No Growth (<1,000 CFU/ML) Most Recent Lab Values WBC 6.7 K/uL (4.8-10.8) 05/04/17 07:12 RBC 4.95 Mil/uL (4.40-5.90) 05/04/17 07:12 Hgb 15.5 g/dL (12.0-18.0) 05/04/17 07:12 Hct 43.5 % (35.0-51.0) 05/04/17 07:12 MCV 88.0 fL (80.0-94.0) 05/04/17 07:12 MCH 31.3 pg (27.0-31.0) H 05/04/17 07:12 MCHC 35.6 g/dL (33.0-37.0) 05/04/17 07:12 RDW 13.5 % (11.5-14.5) 05/04/17 07:12 Plt Count 174 K/uL (130-400) 05/04/17 07:12 MPV 9.9 fL (7.2-11.7) 05/04/17 07:12 Neut % (Auto) 73.6 % (50.0-75.0) 05/04/17 07:12 Lymph % (Auto) 10.2 % (20.0-40.0) L 05/04/17 07:12 [place] % (Auto) 14.5 % (0.0-10.0) H 05/04/17 07:12 Eos % (Auto) 1.3 % (0.0-4.0) 05/04/17 07:12 Baso % (Auto) 0.4 % (0.0-2.0) 05/04/17 07:12 Neut # 4.9 K/uL (1.8-7.0) 05/04/17 07:12 Lymph # 0.7 K/uL (1.0-4.3) L 05/04/17 07:12 [place] # 1.0 K/uL (0.0-0.8) H 05/04/17 07:12 Eos # 0.1 K/uL (0.0-0.7) 05/04/17 07:12 Baso # 0.0 K/uL (0.0-0.2) 05/04/17 07:12 Neutrophils % (Manual) 85 % (50-75) H 05/01/17 20:26 Band Neutrophils % 1 % (0-2) 05/01/17 20:26 Lymphocytes % (Manual) 5 % (20-40) L 05/01/17 20:26 Reactive Lymphs % 1 % (0-0) H 05/01/17 20:26 Monocytes % (Manual) 8 % (0-10) 05/01/17 20:26 Platelet Estimate Normal (NORMAL) 05/01/17 20:26 RBC Morphology Normal 05/01/17 20:26 PT 13.9 SECONDS (9.7-12.2) H 05/02/17 05:31 INR 1.2 05/02/17 05:31 APTT 33 SECONDS (21-34) 05/02/17 05:31 Sodium 134 mmol/L (132-148) 05/04/17 07:12 Potassium 4.1 mmol/L (3.6-5.2) 05/04/17 07:12 Chloride 101 mmol/L (98-107) 05/04/17 07:12 Carbon Dioxide 27 mmol/L (22-30) 05/04/17 07:12 Anion Gap 9 (10-20) L 05/04/17 07:12 BUN 10 mg/dL (9-20) 05/04/17 07:12 Creatinine 1.3 mg/dL (0.8-1.5) 05/04/17 07:12 Est GFR ( Amer) > 60 05/04/17 07:12 Est GFR (Non-Af Amer) 57 05/04/17 07:12 Random Glucose 100 mg/dL (75-110) 05/04/17 07:12 Hemoglobin A1c 5.7 % (4.2-6.5) 05/02/17 04:00 Calcium 9.1 mg/dl (8.6-10.4) 05/04/17 07:12 Phosphorus 2.5 mg/dL (2.5-4.5) 05/04/17 07:12 Magnesium 1.9 mg/dL (1.6-2.3) 05/04/17 07:12 Total Bilirubin 1.3 mg/dL (0.2-1.3) 05/04/17 07:12 AST 49 U/L (17-59) 05/04/17 07:12 ALT 57 U/L (21-72) 05/04/17 07:12 Alkaline Phosphatase 53 U/L (38-126) 05/04/17 07:12 Total Protein 6.9 g/dL (6.3-8.3) 05/04/17 07:12 Albumin 3.5 g/dL (3.5-5.0) 05/04/17 07:12 Globulin 3.3 gm/dL (2.2-3.9) 05/04/17 07:12 Albumin/Globulin Ratio 1.1 (1.0-2.1) 05/04/17 07:12 Triglycerides 66 mg/dL (0-149) 05/02/17 05:31 Cholesterol 137 mg/dL (0-199) 05/02/17 05:31 LDL Cholesterol Direct 57 mg/dL (0-129) 05/02/17 05:31 HDL Cholesterol 49 mg/dL (30-70) 05/02/17 05:31 Lipase 172 U/L (23-300) 05/01/17 20:26 Urine Color Yellow (YELLOW) 05/01/17 20:11 Urine Clarity Clear (Clear) 05/01/17 20:11 Urine pH 7.0 (5.0-8.0) 05/01/17 20:11 Ur Specific [place] 1.019 (1.003-1.030) 05/01/17 20:11 Urine Protein Negative mg/dL (NEGATIVE) 05/01/17 20:11 Urine Glucose (UA) Normal mg/dL (Normal) 05/01/17 20:11 Urine Ketones Trace mg/dL (NEGATIVE) 05/01/17 20:11 Urine Blood Negative (NEGATIVE) 05/01/17 20:11 Urine Nitrate Negative (NEGATIVE) 05/01/17 20:11 Urine Bilirubin Negative (NEGATIVE) 05/01/17 20:11 Urine Urobilinogen 4.0 mg/dL (0.2-1.0) 05/01/17 20:11 Ur Leukocyte Esterase Neg Olivia/uL (Negative) 05/01/17 20:11 Urine WBC (Auto) 1 /hpf (0-5) 05/01/17 20:11 Urine RBC (Auto) 2 /hpf (0-3) 05/01/17 20:11 Ur Transition Epith Cell < 1 /hpf (0-3) 05/01/17 20:11 Urine Bacteria Rare (<OCC) 05/01/17 20:11 Attending/Attestation - Attestation I have personally seen and examined this patient.: Yes I have fully participated in the care of the patient.: Yes I have reviewed all pertinent clinical information, including history, physical exam and plan: Yes Notes (Text): 05/05/17 07:32 Medical attending: Patient was seen and examined by the medical information specialist and myself. Agree with the above note by the medical information specialist. In the morning we saw the patient and he was doing very well. He reported the abdominal pain had substantially decreased. The patient felt ready to advance his diet. So we advanced diet and if he tolerates lunch then we would discharge with PO abx He was able to tolerate diet and later was discharged in the afternoon. He is aware that he needs to have a colonscopy after he is well. thank you Ciro Brown
[2017-05-04] MEDS ORDERED: Pneumococcal 23-Valent Vaccine IM ONE (15:45)
[2017-05-04] MEDS ORDERED: Influenza Vaccine 60 mcg/0.5 mL SYR (4YR UP) IM ONE (15:45)
[2017-05-04 17:31] VITALS: BP 133/76; PULSE 72; TEMP 98.3; O2SAT 95
== END 2017-05-04 17:41 | disposition home or self-care (01) | DRG 183 ==
LOC: C.ER 19:13 → C.9E 23:38 → C.3T 05-02 13:47
PROVIDERS: ADMIT Hospitalist; ATTEND Hospitalist
DX: K57.32 Diverticulitis of large intestine without perforation or abscess without bleeding (principal); D72.829 Elevated white blood cell count, unspecified

== ENCOUNTER 2017-06-11 14:34 | Inpatient (IN) | payer OTHER ==
--- NOTE | 2017-06-11 14:56 | C.PDOC ---
History Of Present Illness <Rossana Hunter - Last Filed: 06/11/17 18:41> <Duke Kapoor - Last Filed: 06/11/17 19:30> 61 yo male w/PMHx of diverticulitis come in for evaluation of suprapubic, LLQ pain gradually developed since 2AM today. Pt sts ,pain is localized, non- radiating, aching, (+) decrease appetite, (+) nausea, chills. Pt sts, " pain is similar to onw when I was diagnosed with diverticulitis". Otherwise, pt denies fever, recent illness, sore throat, cough, CP, SOB, dyspnea, diaphoresis, palpitation, V/D, UTI sx, hematuria, back pain, Ambulate to Ed for evaluation, appears in pain. (Rossana Hunter) History Per: Patient <Rossana Hunter - Last Filed: 06/11/17 18:41> <Duke Kapoor - Last Filed: 06/11/17 19:30> Time Seen by Provider: 06/11/17 14:53 Chief Complaint (Nursing): Abdominal Pain Past Medical History Reviewed: Historical Data, Nursing Documentation, Vital Signs - Medical History PMH: Diverticulitis, Kidney Stones Family History: States: Unknown Family Hx - Social History Hx Tobacco Use: No Hx Alcohol Use: No (socially) Hx Substance Use: No - Immunization History Hx Tetanus Toxoid Vaccination: No Hx Influenza Vaccination: No Hx Pneumococcal Vaccination: No <Rossana Hunter - Last Filed: 06/11/17 18:41> Vital Signs: Last Vital Signs Temp 99.2 F 06/11/17 17:24 Pulse 88 06/11/17 17:24 Resp 18 06/11/17 17:24 BP 132/79 06/11/17 17:24 Pulse Ox 98 06/11/17 18:44 Review Of Systems Except As Marked, All Systems Reviewed And Found Negative. Constitutional: Positive for: Chills. Negative for: Fever ENT: Negative for: Ear Discharge, Nose Discharge, Nose Congestion, Throat Pain Cardiovascular: Negative for: Chest Pain, Palpitations, Orthopnea, Edema, Light Headedness Respiratory: Negative for: Cough, Shortness of Breath Gastrointestinal: Positive for: Nausea, Abdominal Pain. Negative for: Vomiting , Diarrhea, Melena, Hematochezia, Hematemesis Genitourinary: Negative for: Dysuria, Frequency Musculoskeletal: Negative for: Neck Pain, Back Pain Skin: Negative for: Rash Neurological: Negative for: Altered Mental Status <Rossana Hunter - Last Filed: 06/11/17 18:41> Physical Exam - Physical Exam Appears: Well, Non-toxic, No Acute Distress Skin: Normal Color, Warm, Dry, No Rash Head: Normacephalic Eye(s): bilateral: PERRL Nose: No Flaring, No Discharge Oral Mucosa: Moist Throat: No Drooling Neck: Trachea Midline, Supple Cardiovascular: Rhythm Regular, No Murmur, No JVD Respiratory: No Decreased Breath Sounds, No Accessory Muscle Use, No Rales, No Stridor, No Wheezing Gastrointestinal/Abdominal: Soft, Tenderness (suprapubic, LLQ mod), No Distention, No Guarding, No Rebound Back: No CVA Tenderness Extremity: No Deformity, No Swelling Neurological/Psych: Oriented x3, Normal Speech <Rossana Hunter - Last Filed: 06/11/17 18:41> ED Course And Treatment - Laboratory Results Result Diagrams: 06/11/17 15:23 06/11/17 15:23 Lab Interpretation: Abnormal O2 Sat by Pulse Oximetry: 98 Pulse Ox Interpretation: Normal - CT Scan/US ABd/Pelvis w/IV contrast Other Rad Studies (CT/US): Radiology Report Reviewed Progress Note: Pt was OBS in ED for 4 hours and remained stable. pt is afebrile , hemodynamicaly stable. Non-toxic. Abd: (+) mild LLQ tendernes, (-) guarding, (-) rebound. Back: (-) CVA tenderness. Blood work review , mild leukocytosis with left shift. BMP- normal. UA- taisha study. Pt had CT abd/pelvis performed at 17:30, waiting for results. case dsicussed and sign out to . Pending : CT abd results, re-eval, dispo. <Rossana Hunter - Last Filed: 06/11/17 18:41> - Laboratory Results Result Diagrams: 06/11/17 15:23 06/11/17 15:23 <Duke Kapoor - Last Filed: 06/11/17 19:30> Disposition - Disposition Disposition Time: 18:44 <Rossana Hunter - Last Filed: 06/11/17 18:41> Discussed With : Jerson Cooper Doctor Will See Patient In The: Hospital Counseled Patient/Family Regarding: Diagnosis - Disposition Disposition Time: 19:29 - POA Present On Arrival: None <Duke Kapoor - Last Filed: 06/11/17 19:30> - Disposition Referrals: Brandon Gastelum MD [Medical Doctor] - Disposition: HOSPITALIZED Condition: STABLE Forms: [facility] (Ukrainian) - Clinical Impression Clinical Impression: Abdominal pain, Diverticulitis of sigmoid colon, Perforation and abscess of large intestine concurrent with and due to diverticulitis
[2017-06-11] MEDS ORDERED: Sodium Chloride 0.9% 1,000 ML IV ONE (15:10)
[2017-06-11 15:29] LABS: BASO # 0.1 K/uL (0.0-0.2); BASO % 0.7 % (0.0-2.0); EOS % 0.1 % (0.0-4.0); HEMOGLOBIN 16.6 g/dL (12.0-18.0); LYMPH # 1.3 K/uL (1.0-4.3); LYMPH % 8.1 % (20.0-40.0); MEAN CELL VOLUME 87.7 fL (80.0-94.0); MEAN CORPUSCULAR HEMOGLOBIN 30.1 pg (27.0-31.0); MEAN CORPUSCULAR HGB CONC 34.4 g/dL (33.0-37.0); MEAN PLATELET VOLUME 9.6 fL (7.2-11.7); MONO # 1.4 K/uL (0.0-0.8); MONO % 8.7 % (0.0-10.0); NEUT # 13.2 K/uL (1.8-7.0); NEUT % 82.4 % (50.0-75.0); PLATELET COUNT 211 K/uL (130-400); RBC 5.49 Mil/uL (4.40-5.90); RED CELL DISTRIBUTION WIDTH 14.3 % (11.5-14.5)
[2017-06-11 15:33] LABS: URINE BILIRUBIN NEGATIVE (NEGATIVE); URINE BLOOD NEGATIVE (NEGATIVE); URINE CLARITY Clear (Clear); URINE COLOR Yellow (YELLOW); URINE GLUCOSE (UA) NORMAL (Normal); URINE LEUKOCYTE ESTERASE NEG Leu/uL (Negative); URINE PROTEIN NEGATIVE (NEGATIVE); URINE UROBILINOGEN NORMAL mg/dL (0.2-1.0)
[2017-06-11] MEDS ORDERED: Sodium Chloride 0.9% 1,000 ML ONE (15:38)
[2017-06-11 15:50] LABS: LYMPHOCYTE 12 % (20-40); TOTAL CELLS COUNTED 100
[2017-06-11 15:51] LABS: MONOCYTE 6 % (0-10); NEUTROPHIL 82 % (50-75); PLATELET ESTIMATE NORMAL (NORMAL)
[2017-06-11 15:59] LABS: ALB/GLOB RATIO 1.2 (1.0-2.1); ALBUMIN 4.5 g/dL (3.5-5.0); ALT/SGPT 58 U/L (21-72); AST/SGOT 25 U/L (17-59); BLOOD UREA NITROGEN 16 mg/dL (9-20); CALCIUM 9.7 mg/dl (8.6-10.4); GFR AFRICAN-AMERICAN > 60; GFR NON-AFRICAN AMERICAN > 60; LIPASE 224 U/L (23-300)
[2017-06-11] MEDS ORDERED: Iohexol 350mg/ml 100 ML ONE (16:19)
--- NOTE | 2017-06-11 18:59 | CT ---
EXAM: CT Abdomen and Pelvis With Intravenous Contrast EXAM DATE/TIME: 06/11/2017 3:10 PM CLINICAL HISTORY: 61 years old, male; Pain; Abdominal pain; Localized; Left lower quadrant (llq); Additional info: Llq pain TECHNIQUE: Axial computed tomography images of the abdomen and pelvis with intravenous contrast. All CT scans at this facility use one or more dose reduction techniques, viz.: automated exposure control; ma/kV adjustment per patient size (including targeted exams where dose is matched to indication; i.e. head); or iterative reconstruction technique. Coronal and sagittal reformatted images were created and reviewed. CONTRAST: 100 mL of omnipaque 350 administered intravenously. COMPARISON: CT - ABD PELVIS PO IV CONTRAST 2017-05-01 22:14 FINDINGS: Lower thorax: The heart size is normal. There are coronary artery calcifications. There is a small hiatal hernia. There is minimal atelectasis/scarring at the lung bases. ABDOMEN: Liver: There is fatty infiltration of the liver. Gallbladder and bile ducts: unremarkable Pancreas: Pancreas is mildly atrophic. Spleen: unremarkable Adrenals: Adrenals are unchanged. Kidneys and ureters: There is a nonobstructing left renal stone. There is a small low attenuation left renal lesion too small to characterize.Kidneys and ureters are otherwise unremarkable. Stomach and bowel: Stomach is almost empty. Rotation is normal. The small bowel is distended with fluid. Small bowel loops in the left upper quadrant are mildly distended. There scattered air-fluid levels. There is no obstruction. Ileocecal region is unremarkable. There is moderate stool in the colon. There is diverticulosis. There is sigmoid diverticulitis with perforation. There is a 2.3 x 1.7 x 1.5 cm thickwalled abscess anterior to the inflamed sigmoid. Appendix: See stomach and bowel PELVIS: Bladder: unremarkable Reproductive: Prostate is mildly enlarged. Seminal vesicles are unremarkable. ABDOMEN and PELVIS: Intraperitoneal space: There is free intraperitoneal air. There is free fluid in the pelvis. Bones/joints: There are degenerative changes in the osseus structures. Soft tissues: unremarkable Vasculature: There are vascular calcifications. Lymph nodes: There is no pathologic adenopathy. IMPRESSION: Perforated diverticulitis with free intraperitoneal air and small amount of free fluid, 2.3 x 1.7 x 1.5 cm thickwalled abscess; reactive ileus Additional nonemergent findings as described above.
[2017-06-11] MEDS ORDERED: HYDROmorphone 0.5 mg/0.5 ml ISec IVP PRN (19:59)
[2017-06-11] MEDS ORDERED: Sodium Chloride 0.9% 500 ML IV ONE (20:03)
--- NOTE | 2017-06-11 20:06 | CP.PCM.CON ---
<Herson Pritchett - Last Filed: 06/11/17 21:05> History of Present Illness - History of Present Illness History of Present Illness: Surgery Consult note. Dr. Gastelum 61yo M with no significant PMH here for evaluation of abdominal pain. Pain started at 2AM this morning, located in the suprapubic and LLQ, does not radiate. Associated with nausea and chills. Denies vomiting. Last BM 1PM today, normal caliber, no blood, no loose stools. Last meal was yesterday evening at 6PM, (chicken cutlet and mashed potatoes). Does report dark urine, no dysuria. States that the pain is similar to a previous episode in Apr 2017 when he was diagnosed with acute diverticulitis and managed on outpatient PO Abx. He completed his course of abx at that time and states that his symptoms had resolved until today. Currently, he denies any Chest pain, no SOB. No Headaches. Denies fevers. Denies any sick contacts. He has never had a colonoscopy in the past. PMHx: Diverticulitis in Apr 2017 PSHx: Denies Social Hx: Lives in [place] with son. Denies Tobacco use, denies ETOH, denies illicit drugs Family Hx: non-contributory NKDA Review of Systems - Review of Systems All systems: reviewed and no additional remarkable complaints except - Constitutional Constitutional: Chills. absent: Fever, Headache - Cardiovascular Cardiovascular: absent: Chest Pain, Dyspnea - Respiratory Respiratory: absent: Cough, Dyspnea - Gastrointestinal Gastrointestinal: Abdominal Pain, Nausea. absent: Constipation, Diarrhea, Hematemesis, Hematochezia, Melena, Vomiting - Genitourinary Genitourinary: absent: Dysuria - Musculoskeletal Musculoskeletal: absent: Back Pain - Neurological Neurological: absent: Dizziness, Headaches, Weakness - Psychiatric Psychiatric: absent: Anxiety Past Patient History - Infectious Disease Hx of Infectious Diseases: None - Past Medical History & Family History Past Medical History?: Yes Past Family History: Reviewed and not pertinent - Past Social History Smoking Status: Never Smoked Alcohol: None Drugs: Denies Home Situation {Lives}: With Family - CARDIAC Hx Cardiac Disorders: No - PULMONARY Hx Respiratory Disorders: No - NEUROLOGICAL Hx Neurological Disorder: No - HEENT Hx HEENT Problems: No - RENAL Hx Kidney Stones: Yes - ENDOCRINE/METABOLIC Hx Endocrine Disorders: No - HEMATOLOGICAL/ONCOLOGICAL Hx Blood Disorders: No - INTEGUMENTARY Hx Dermatological Problems: No - MUSCULOSKELETAL/RHEUMATOLOGICAL Hx Musculoskeletal Disorders: No Hx Falls: No - GASTROINTESTINAL Hx Diverticulitis: Yes - GENITOURINARY/GYNECOLOGICAL Hx Genitourinary Disorders: No - PSYCHIATRIC Hx Substance Use: No - SURGICAL HISTORY Hx Surgeries: No - ANESTHESIA Hx Anesthesia: No Meds Allergies/Adverse Reactions: Allergies Allergy/AdvReac Type Severity Reaction Status Date / Time No Known Allergies Allergy Verified 06/11/17 14:43 - Medications Medications: Current Medications Hydromorphone HCl (Dilaudid) 0.5 mg IVP Q4H PRN PRN Reason: Pain, moderate (4-7) Piperacillin Sod/Tazobactam (Sod 3.375 gm/ Sodium Chloride) 100 mls @ 200 mls/ hr IVPB Q6H JULIO CESAR PRN Reason: Protocol Sodium Chloride (Sodium Chloride 0.9%) 1,000 mls @ 130 mls/hr IV .Q7H42M JULIO CESAR Sodium Chloride (Sodium Chloride 0.9%) 500 mls @ 1,000 mls/hr IV .Q30M ONE Stop: 06/11/17 20:32 Ondansetron HCl (Zofran Inj) 4 mg IVP Q6H PRN PRN Reason: Nausea/Vomiting Physical Exam - Constitutional Appears: Non-toxic, No Acute Distress - Head Exam Head Exam: ATRAUMATIC, NORMAL INSPECTION, NORMOCEPHALIC - Eye Exam Eye Exam: EOMI, Normal appearance. absent: Scleral icterus - ENT Exam ENT Exam: Mucous Membranes Moist - Respiratory Exam Respiratory Exam: NORMAL BREATHING PATTERN. absent: Accessory Muscle Use, Respiratory Distress - Cardiovascular Exam Cardiovascular Exam: RRR. absent: JVD - GI/Abdominal Exam GI & Abdominal Exam: Soft, Tenderness (suprapubic and LLQ). absent: Distended, Firm, Rigid Additional comments: Mild Rebound tenderness. Voluntary guarding. Tender to palpation suprapubic and LLQ. Soft, non-distended. Non-tympanic. No Velazquez's sign. No McBurney's point tenderness. - Extremities Exam Extremities exam: Positive for: normal inspection. Negative for: calf tenderness - Back Exam Back exam: NORMAL INSPECTION - Neurological Exam Neurological exam: Alert, Oriented x3 - Skin Skin Exam: Dry, Intact, Normal Color, Warm Results - Vital Signs Recent Vital Signs: Last Vital Signs Temp 98.4 F 06/11/17 19:59 Pulse 90 06/11/17 19:59 Resp 18 06/11/17 19:59 BP 139/85 06/11/17 19:59 Pulse Ox 97 06/11/17 19:59 - Labs Result Diagrams: 06/11/17 15:23 06/11/17 15:23 Labs: Laboratory Results - last 24 hr 06/11/17 06/11/17 06/11/17 15:23 15:23 15:23 WBC 16.0 H D RBC 5.49 Hgb 16.6 Hct 48.2 MCV 87.7 MCH 30.1 MCHC 34.4 RDW 14.3 Plt Count 211 MPV 9.6 Neut % (Auto) 82.4 H Lymph % (Auto) 8.1 L [place] % (Auto) 8.7 Eos % (Auto) 0.1 Baso % (Auto) 0.7 Neut # (Auto) 13.2 H Lymph # (Auto) 1.3 [place] # (Auto) 1.4 H Eos # (Auto) 0.0 Baso # (Auto) 0.1 Neutrophils % (Manual) 82 H Lymphocytes % (Manual) 12 L Monocytes % (Manual) 6 Platelet Estimate Normal Sodium 142 Potassium 4.3 Chloride 101 Carbon Dioxide 26 Anion Gap 19 BUN 16 Creatinine 1.0 Est GFR ( Amer) > 60 Est GFR (Non-Af Amer) > 60 Random Glucose 106 Calcium 9.7 Total Bilirubin 1.8 H AST 25 ALT 58 Alkaline Phosphatase 61 Total Protein 8.1 Albumin 4.5 Globulin 3.6 Albumin/Globulin Ratio 1.2 Lipase 224 Urine Color Yellow Urine Clarity Clear Urine pH 7.0 Ur Specific [place] 1.027 Urine Protein Negative Urine Glucose (UA) Normal Urine Ketones Negative Urine Blood Negative Urine Nitrate Negative Urine Bilirubin Negative Urine Urobilinogen Normal Ur Leukocyte Esterase Neg Urine WBC (Auto) 1 Urine RBC (Auto) 2 Assessment & Plan - Assessment and Plan (Free Text) Assessment: 61yo M with perforated sigmoid diverticulitis. - CT Abd/Pelvis noted Plan: - NPO - Strict I &Os - IV Abx - IVF - Pain management - Zofran - f/u PT/PTT, CXR, EKG - f/u AM labs. f/u Blood cxs - serial abdominal exams - We will monitor the patient's clinical course and make further recommendations as necessary - Patient will benefit from GI evaluation 6 weeks after symptom resolution for elective colonoscopy Further recs as per Dr. Nirav Pritchett PGY1 surgery pager: [phone] <Pravin Gastelum - Last Filed: 06/12/17 18:15> Meds - Medications Medications: Current Medications Enoxaparin Sodium (Lovenox) 40 mg SC DAILY [facility] Last Admin: 06/12/17 09:59 Dose: 40 mg Famotidine (Pepcid) 20 mg IVP DAILY [facility] Last Admin: 06/12/17 10:00 Dose: 20 mg Sodium Chloride (Sodium Chloride 0.9%) 1,000 mls @ 130 mls/hr IV .Q7H42M [facility] Last Admin: 06/12/17 11:50 Dose: Not Given Meropenem 1 gm/ Sodium (Chloride) 50 mls @ 100 mls/hr IVPB Q8 JULIO CESAR PRN Reason: Protocol Last Admin: 06/12/17 16:23 Dose: 100 mls/hr Ketorolac Tromethamine (Toradol) 30 mg IVP Q6 PRN PRN Reason: Pain, moderate (4-7) Morphine Sulfate (Morphine) 1 mg IV Q6 PRN PRN Reason: Pain, severe (8-10) Ondansetron HCl (Zofran Inj) 4 mg IVP Q6H PRN PRN Reason: Nausea/Vomiting Pneumococcal Polyvalent Vaccine (Pneumovax 23 Vaccine) 0.5 ml IM .ONCE ONE Stop: 06/14/17 10:01 Saccharomyces Boulardii (Florastor) 250 mg PO BID [facility] Tamsulosin HCl (Flomax) 0.4 mg PO DAILY [facility] Last Admin: 06/12/17 11:00 Dose: 0.4 mg Results - Vital Signs Recent Vital Signs: Last Vital Signs Temp 98.2 F 06/12/17 17:17 Pulse 82 06/12/17 17:17 Resp 20 06/12/17 17:17 BP 115/71 06/12/17 17:17 Pulse Ox 94 L 06/12/17 17:17 - Labs Result Diagrams: 06/12/17 06:10 06/12/17 06:10 Labs: Laboratory Results - last 24 hr 06/11/17 06/12/1706/12/18 20:30 06:10 06:10 WBC 12.7 H RBC 4.79 Hgb 14.4 D Hct 42.0 MCV 87.6 MCH 30.1 MCHC 34.4 RDW 14.4 Plt Count 168 MPV 10.0 Neut % (Auto) 80.3 H Lymph % (Auto) 10.6 L [place] % (Auto) 8.7 Eos % (Auto) 0.1 Baso % (Auto) 0.3 Neut # (Auto) 10.2 H Lymph # (Auto) 1.3 [place] # (Auto) 1.1 H Eos # (Auto) 0.0 Baso # (Auto) 0.0 PT 15.0 H INR 1.3 APTT 30 Sodium 143 Potassium 4.0 Chloride 105 Carbon Dioxide 24 Anion Gap 17 BUN 12 Creatinine 1.1 Est GFR ( Amer) > 60 Est GFR (Non-Af Amer) > 60 Random Glucose 109 Calcium 8.7 Total Bilirubin 2.0 H AST 20 ALT 44 Alkaline Phosphatase 46 Total Protein 6.5 Albumin 3.5 D Globulin 3.0 Albumin/Globulin Ratio 1.2 Attending/Attestation - Attestation I have personally seen and examined this patient.: Yes I have fully participated in the care of the patient.: Yes I have reviewed all pertinent clinical information: Yes Notes (Text): Pt was seen and examined at bedside Agree with above note and assessment Pt with Sigmoid diverticulitis with abscess CT scan : suggestive of one drop of free intraperitoneal air Labs and radiology reviewed Ass: Sigmoid diverticulitis with microperforation Plan : Pt would need IV antibiotics Clinically pt looks improved. No peritoneal signs IV antibiotics Plan d.w pt in detail Risk and benefit explained in detail.
[2017-06-11] MEDS ORDERED: Piperacillin/Tazobact 3.375 gm 100 ML IVPB ONE (20:18)
[2017-06-11] MEDS: Piperacillin/Tazobact 3.375 GM in Sodium Chloride 100 ML IVPB SCH (20:25)
[2017-06-11 20:44] LABS: INR 1.3
[2017-06-11] MEDS: Sodium Chloride 0.9% 1,000 ML IV SCH (20:55)
--- NOTE | 2017-06-11 21:37 | CP.PCM.HP ---
<Gabe Aparicio - Last Filed: 06/11/17 21:48> History of Present Illness - History of Present Illness History of Present Illness: CC: Abdominal pain HPI: A 61 year old male with a PMHx of Diverticulitis presents to the ED with complaints of deep squeezing LLQ abdominal pain, rated 10/10. The pain woke him up at 2AM last night and persisted today thus he decided to come to ED. He took a tylenol that did not relieve his pain. He states the pain radiates to the suprapubic region. The pain is exacerbated by cough. Last BM 1PM today, normal caliber and normal color. Last meal was yesterday evening at 6PM, (chicken cutlet and mashed potatoes). He endorsed fever and chills. Denied nausea, vomiting, diarrhea. The patient was admitted in late April of this year with a diagnosis of diverticulitis of sigmoid colon. He was managed with antibiotics and discharged with 4 day course of antibiotics (which he completed) . He did not follow up with a PMD or get a colonoscopy, as instructed, due to lack of insurance. Since the discharge the patient has had occasional abdominal pain during defecation. He also admits to dark urine (non-bloody). He denies changes in appetite. In the ED, the patient received Cipro 500 mg, Pepcid 20 mg IV, Ketoralac 20 IV, Flagyl 50 PO, and [address] imaging of the abdomen showed a sigmoid abscess with free peritoneal air. 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 Denies Tobacco and admits to drinking alcohol socially Allergies: Denies, NKDA FamHx: Father has HTN, Mother has heart disease Present on Admission - Present on Admission Any Indicators Present on Admission: No Review of Systems - Constitutional Constitutional: Chills, Fever. absent: Fatigue, Headache, Weight Gain, Weight Loss - EENT Eyes: absent: Change in Vision - Cardiovascular Cardiovascular: absent: Chest Pain, Chest Pain with Activity, Claudication, Dyspnea on Exertion, Lightheadedness, Palpitations, Rapid Heart Rate, Syncope - Respiratory Respiratory: absent: Cough, Dyspnea, Dyspnea on Exertion, Chest Congestion - Gastrointestinal Gastrointestinal: As Per HPI, Abdominal Pain, Bloating. absent: Constipation, Diarrhea, Dyspepsia, Hematochezia - Genitourinary Genitourinary: absent: Dysuria - Musculoskeletal Musculoskeletal: absent: Back Pain Past Patient History - Infectious Disease Hx of Infectious Diseases: None - Past Medical History & Family History Past Medical History?: Yes Past Family History: Reviewed and not pertinent - Past Social History Smoking Status: Never Smoked Alcohol: None Drugs: Denies Home Situation {Lives}: With Family - CARDIAC Hx Cardiac Disorders: No - PULMONARY Hx Respiratory Disorders: No - NEUROLOGICAL Hx Neurological Disorder: No - HEENT Hx HEENT Problems: No - RENAL Hx Kidney Stones: Yes - ENDOCRINE/METABOLIC Hx Endocrine Disorders: No - HEMATOLOGICAL/ONCOLOGICAL Hx Blood Disorders: No - INTEGUMENTARY Hx Dermatological Problems: No - MUSCULOSKELETAL/RHEUMATOLOGICAL Hx Musculoskeletal Disorders: No Hx Falls: No - GASTROINTESTINAL Hx Diverticulitis: Yes - GENITOURINARY/GYNECOLOGICAL Hx Genitourinary Disorders: No - PSYCHIATRIC Hx Substance Use: No - SURGICAL HISTORY Hx Surgeries: No - ANESTHESIA Hx Anesthesia: No Meds Allergies/Adverse Reactions: Allergies Allergy/AdvReac Type Severity Reaction Status Date / Time No Known Allergies Allergy Verified 06/11/17 14:43 Physical Exam - Constitutional Appears: Well, Non-toxic, No Acute Distress - Head Exam Head Exam: ATRAUMATIC, NORMAL INSPECTION - Eye Exam Eye Exam: EOMI Pupil Exam: PERRL - ENT Exam ENT Exam: Mucous Membranes Moist - Neck Exam Neck exam: Positive for: Normal Inspection. Negative for: Lymphadenopathy - Respiratory Exam Respiratory Exam: Clear to Auscultation Bilateral, NORMAL BREATHING PATTERN. absent: Rales, Rhonchi, Wheezes - Cardiovascular Exam Cardiovascular Exam: REGULAR RHYTHM, RRR, +S1, +S2. absent: Bradycardia, Tachycardia, JVD, Systolic Murmur - GI/Abdominal Exam GI & Abdominal Exam: Normal Bowel Sounds, Rebound, Soft, Tenderness (( suprapubic and LLQ)) Additional comments: Mild Rebound tenderness. Voluntary guarding. Tender to palpation LLQ with radiation of pain into suprapubic area near pubic symphysis Soft, non-distended. Non-tympanic. No Velazquez's sign. No McBurney's point tenderness. - Rectal Exam Rectal Exam: Deferred - Extremities Exam Extremities exam: Positive for: full ROM, normal capillary refill, normal inspection, pedal pulses present. Negative for: pedal edema, tenderness - Back Exam Back exam: NORMAL INSPECTION. absent: CVA tenderness (L), CVA tenderness (R), tenderness - Neurological Exam Neurological exam: Alert, Oriented x3 - Psychiatric Exam Psychiatric exam: Normal Affect, Normal Mood - Skin Skin Exam: Intact, Normal Color, Warm Results - Vital Signs Recent Vital Signs: Last Vital Signs Temp 98.4 F 06/11/17 19:59 Pulse 90 06/11/17 19:59 Resp 18 06/11/17 19:59 BP 139/85 06/11/17 19:59 Pulse Ox 97 06/11/17 20:50 - Labs Result Diagrams: 06/11/17 15:23 06/11/17 15:23 Labs: Laboratory Results - last 24 hr 06/11/17 06/11/17 06/11/17 15:23 15:23 15:23 WBC 16.0 H D RBC 5.49 Hgb 16.6 Hct 48.2 MCV 87.7 MCH 30.1 MCHC 34.4 RDW 14.3 Plt Count 211 MPV 9.6 Neut % (Auto) 82.4 H Lymph % (Auto) 8.1 L [place] % (Auto) 8.7 Eos % (Auto) 0.1 Baso % (Auto) 0.7 Neut # (Auto) 13.2 H Lymph # (Auto) 1.3 [place] # (Auto) 1.4 H Eos # (Auto) 0.0 Baso # (Auto) 0.1 Neutrophils % (Manual) 82 H Lymphocytes % (Manual) 12 L Monocytes % (Manual) 6 Platelet Estimate Normal PT INR APTT Sodium 142 Potassium 4.3 Chloride 101 Carbon Dioxide 26 Anion Gap 19 BUN 16 Creatinine 1.0 Est GFR ( Amer) > 60 Est GFR (Non-Af Amer) > 60 Random Glucose 106 Calcium 9.7 Total Bilirubin 1.8 H AST 25 ALT 58 Alkaline Phosphatase 61 Total Protein 8.1 Albumin 4.5 Globulin 3.6 Albumin/Globulin Ratio 1.2 Lipase 224 Urine Color Yellow Urine Clarity Clear Urine pH 7.0 Ur Specific [place] 1.027 Urine Protein Negative Urine Glucose (UA) Normal Urine Ketones Negative Urine Blood Negative Urine Nitrate Negative Urine Bilirubin Negative Urine Urobilinogen Normal Ur Leukocyte Esterase Neg Urine WBC (Auto) 1 Urine RBC (Auto) 2 06/11/17 20:30 WBC RBC Hgb Hct MCV MCH MCHC RDW Plt Count MPV Neut % (Auto) Lymph % (Auto) [place] % (Auto) Eos % (Auto) Baso % (Auto) Neut # (Auto) Lymph # (Auto) [place] # (Auto) Eos # (Auto) Baso # (Auto) Neutrophils % (Manual) Lymphocytes % (Manual) Monocytes % (Manual) Platelet Estimate PT 15.0 H INR 1.3 APTT 30 Sodium Potassium Chloride Carbon Dioxide Anion Gap BUN Creatinine Est GFR ( Amer) Est GFR (Non-Af Amer) Random Glucose Calcium Total Bilirubin AST ALT Alkaline Phosphatase Total Protein Albumin Globulin Albumin/Globulin Ratio Lipase Urine Color Urine Clarity Urine pH Ur Specific [place] Urine Protein Urine Glucose (UA) Urine Ketones Urine Blood Urine Nitrate Urine Bilirubin Urine Urobilinogen Ur Leukocyte Esterase Urine WBC (Auto) Urine RBC (Auto) Assessment & Plan (1) Diverticulitis of colon with perforation Assessment and Plan: SEPSIS * On admission patient met SIRS criteria (tachy, leukocytosis) with confirmed source of infection General Surgery consult, Dr Gastelum * Will monitor the patient's clinical course and make further recommendations as necessary * Patient will benefit from GI evaluation 6 weeks after symptom resolution for elective colonoscopy Zosyn 3.375g IVP Q6H (started 06/11/17) Flagyl 500mg IVP Q8H (started 06/11/17) NPO Strict I & Os Pain management with Dilaudid 0.5mg IVP Q4H PRN Zofran 4mg IVP Q6H PRN for nausea IVF w/ NS @ 130cc/hr F/U Blood Cx Imaging: CT abd/pelvis w/ IV contrast: There is sigmoid diverticulitis with perforation. There is a 2.3 x 1.7 x 1.5 cm thick walled abscess anterior to the inflamed sigmoid. Status: Acute Priority: High (2) Enlarged prostate Assessment and Plan: CT abd/pelvis w/ IV contrast: Prostate is mildly enlarged. Offers complaints of frequent urge to urinate, getting up at night to urinate, difficulty urinating and dribbling of urine Status: Chronic Priority: Medium (3) Kidney stone on left side Assessment and Plan: CT abd/pelvis w/ IV contrast: There is a non-obstructing left renal stone. Status: Chronic Priority: Low (4) Prophylactic measure Assessment and Plan: SCDs, Lovenox 40mg SC QD Pepcid 20mg IVP QD NPO Status: Acute Priority: Low <Jerson Cooper P - Last Filed: 06/12/17 01:27> Results - Vital Signs Recent Vital Signs: Last Vital Signs Temp 98.8 F 06/12/17 00:00 Pulse 88 06/12/17 00:00 Resp 20 06/12/17 00:00 BP 130/75 06/12/17 00:00 Pulse Ox 94 L 06/12/17 00:00 - Labs Result Diagrams: 06/11/17 15:23 06/11/17 15:23 Labs: Laboratory Results - last 24 hr 06/11/17 06/11/17 06/11/17 15:23 15:23 15:23 WBC 16.0 H D RBC 5.49 Hgb 16.6 Hct 48.2 MCV 87.7 MCH 30.1 MCHC 34.4 RDW 14.3 Plt Count 211 MPV 9.6 Neut % (Auto) 82.4 H Lymph % (Auto) 8.1 L [place] % (Auto) 8.7 Eos % (Auto) 0.1 Baso % (Auto) 0.7 Neut # (Auto) 13.2 H Lymph # (Auto) 1.3 [place] # (Auto) 1.4 H Eos # (Auto) 0.0 Baso # (Auto) 0.1 Neutrophils % (Manual) 82 H Lymphocytes % (Manual) 12 L Monocytes % (Manual) 6 Platelet Estimate Normal PT INR APTT Sodium 142 Potassium 4.3 Chloride 101 Carbon Dioxide 26 Anion Gap 19 BUN 16 Creatinine 1.0 Est GFR ( Amer) > 60 Est GFR (Non-Af Amer) > 60 Random Glucose 106 Calcium 9.7 Total Bilirubin 1.8 H AST 25 ALT 58 Alkaline Phosphatase 61 Total Protein 8.1 Albumin 4.5 Globulin 3.6 Albumin/Globulin Ratio 1.2 Lipase 224 Urine Color Yellow Urine Clarity Clear Urine pH 7.0 Ur Specific [place] 1.027 Urine Protein Negative Urine Glucose (UA) Normal Urine Ketones Negative Urine Blood Negative Urine Nitrate Negative Urine Bilirubin Negative Urine Urobilinogen Normal Ur Leukocyte Esterase Neg Urine WBC (Auto) 1 Urine RBC (Auto) 2 06/11/17 20:30 WBC RBC Hgb Hct MCV MCH MCHC RDW Plt Count MPV Neut % (Auto) Lymph % (Auto) [place] % (Auto) Eos % (Auto) Baso % (Auto) Neut # (Auto) Lymph # (Auto) [place] # (Auto) Eos # (Auto) Baso # (Auto) Neutrophils % (Manual) Lymphocytes % (Manual) Monocytes % (Manual) Platelet Estimate PT 15.0 H INR 1.3 APTT 30 Sodium Potassium Chloride Carbon Dioxide Anion Gap BUN Creatinine Est GFR ( Amer) Est GFR (Non-Af Amer) Random Glucose Calcium Total Bilirubin AST ALT Alkaline Phosphatase Total Protein Albumin Globulin Albumin/Globulin Ratio Lipase Urine Color Urine Clarity Urine pH Ur Specific [place] Urine Protein Urine Glucose (UA) Urine Ketones Urine Blood Urine Nitrate Urine Bilirubin Urine Urobilinogen Ur Leukocyte Esterase Urine WBC (Auto) Urine RBC (Auto) Attending/Attestation - Attestation I have personally seen and examined this patient.: Yes I have fully participated in the care of the patient.: Yes I have reviewed all pertinent clinical information: Yes Notes (Text): Assessment Second diverticulitis episode in same area of sigmoid this time with abscess and walled off perforation with very small free air. Plan NPO, ivf, pain control Abx zosyn, flagyl Will probably need IR drainage of abscess and later repair/resection of sigmoid section, out pt colonoscopy one inflammation subsided. Gi/dvt prophylaxis. Acute surgical intervention if worsens converts into generalized peritonitis. 06/12/17 01:27
[2017-06-11 21:40] VITALS: RESP 20
[2017-06-11] MEDS: metroNIDAZOLE IV 500 mg/100 ml 500 MG/100 ML BAG IVPB SCH (21:55)
[2017-06-12] MEDS: Piperacillin/Tazobact 3.375 GM in Sodium Chloride 100 ML IVPB SCH ×2 (04:00→10:00)
[2017-06-12 06:22] LABS: BASO % 0.3 % (0.0-2.0); EOS % 0.1 % (0.0-4.0); HEMOGLOBIN 14.4 g/dL (12.0-18.0); LYMPH # 1.3 K/uL (1.0-4.3); LYMPH % 10.6 % (20.0-40.0); MEAN CELL VOLUME 87.6 fL (80.0-94.0); MEAN CORPUSCULAR HEMOGLOBIN 30.1 pg (27.0-31.0); MEAN CORPUSCULAR HGB CONC 34.4 g/dL (33.0-37.0); MONO # 1.1 K/uL (0.0-0.8); MONO % 8.7 % (0.0-10.0); NEUT # 10.2 K/uL (1.8-7.0); NEUT % 80.3 % (50.0-75.0); NRBC % 0.1 % (0.0-2.0); RBC 4.79 Mil/uL (4.40-5.90); RED CELL DISTRIBUTION WIDTH 14.4 % (11.5-14.5); WHITE BLOOD COUNT 12.7 K/uL (4.8-10.8)
[2017-06-12] MEDS: Sodium Chloride 0.9% 1,000 ML IV SCH ×3 (06:23→19:27)
[2017-06-12] MEDS: metroNIDAZOLE IV 500 mg/100 ml 500 MG/100 ML BAG IVPB SCH (06:24)
[2017-06-12 06:45] LABS: ALB/GLOB RATIO 1.2 (1.0-2.1); ALBUMIN 3.5 g/dL (3.5-5.0); ALT/SGPT 44 U/L (21-72); AST/SGOT 20 U/L (17-59); BLOOD UREA NITROGEN 12 mg/dL (9-20); CALCIUM 8.7 mg/dl (8.6-10.4); GFR AFRICAN-AMERICAN > 60; GFR NON-AFRICAN AMERICAN > 60
--- NOTE | 2017-06-12 08:03 | RAD ---
HISTORY: preop COMPARISON: 05/01/2017. FINDINGS: LUNGS: The lungs are well inflated and clear. PLEURA: No significant pleural effusion identified, no pneumothorax apparent. CARDIOVASCULAR: Normal. OSSEOUS STRUCTURES: No significant abnormalities. VISUALIZED UPPER ABDOMEN: Normal. OTHER FINDINGS: None. IMPRESSION: No active pulmonary disease.
[2017-06-12] MEDS: Enoxaparin 40 mg Syringe SC SCH (09:59)
--- NOTE | 2017-06-12 10:10 | CP.PCM.PN ---
<Heike Reed - Last Filed: 06/12/17 10:11> Subjective - Date & Time of Evaluation Date of Evaluation: 06/12/17 Time of Evaluation: 07:30 - Subjective Subjective: Surgery: Dr. Gastelum Pt seen and examined. No acute overnight events. States he feels ok, and pain is still present mostly in the LLQ. Pt admits to having similar episode a few weeks back for which he was hospitalized and placed on ABX. Pt states he had a non-bloody BM yesterday and it was normal. Denies N/V, F/C. Objective - Vital Signs/Intake and Output Vital Signs (last 24 hours): Temp Pulse Resp BP Pulse Ox 98.8 F 76 20 124/74 96 06/12/17 07:26 06/12/17 07:26 06/12/17 07:26 06/12/17 07:26 06/12/17 07:26 Intake and Output: 06/12/17 06/12/17 06:59 18:59 Intake Total 1040 Output Total 800 Balance 240 - Medications Medications: Current Medications Enoxaparin Sodium (Lovenox) 40 mg SC DAILY [facility] Last Admin: 06/12/17 09:59 Dose: 40 mg Famotidine (Pepcid) 20 mg IVP DAILY [facility] Last Admin: 06/12/17 10:00 Dose: 20 mg Hydromorphone HCl (Dilaudid) 0.5 mg IVP Q4H PRN PRN Reason: Pain, moderate (4-7) Piperacillin Sod/Tazobactam (Sod 3.375 gm/ Sodium Chloride) 100 mls @ 200 mls/ hr IVPB Q6H [facility] PRN Reason: Protocol Last Admin: 06/12/17 04:00 Dose: 200 mls/hr Sodium Chloride (Sodium Chloride 0.9%) 1,000 mls @ 130 mls/hr IV .Q7H42M [facility] Last Admin: 06/12/17 06:23 Dose: 130 mls/hr Ondansetron HCl (Zofran Inj) 4 mg IVP Q6H PRN PRN Reason: Nausea/Vomiting Pneumococcal Polyvalent Vaccine (Pneumovax 23 Vaccine) 0.5 ml IM .ONCE ONE Stop: 06/14/17 10:01 Tamsulosin HCl (Flomax) 0.4 mg PO DAILY [facility] - Labs Labs: 06/12/17 06:10 06/12/17 06:10 PT 15.0 SECONDS (9.7-12.2) H 06/11/17 20:30 INR 1.3 06/11/17 20:30 APTT 30 SECONDS (21-34) 06/11/17 20:30 - Constitutional Appears: Well, No Acute Distress - Head Exam Head Exam: ATRAUMATIC, NORMOCEPHALIC - ENT Exam ENT Exam: Mucous Membranes Moist - Respiratory Exam Respiratory Exam: NORMAL BREATHING PATTERN - Cardiovascular Exam Cardiovascular Exam: RRR - GI/Abdominal Exam GI & Abdominal Exam: Soft, Tenderness (in the LLQ and suprapubic region). absent: Distended, Guarding - Neurological Exam Neurological Exam: Alert, Awake, Oriented x3 - Skin Skin Exam: Dry, Warm Assessment and Plan - Assessment and Plan (Free Text) Assessment: 61M with recurrent diverticulitis & microperforation; Hinchey Stage Ia Plan: - keep NPO with IVF & IV ABX - no definite abscess or collection that can be drained at this time - serial abdominal exams - pt will need eval by GI so that he can f/u as outpt for colonoscopy once acute attack resolves - he will also need elective sigmoidectomy and should f/u with surgery after getting his elective colonoscopy upon DC - will cont follow - pt seen and examined with Dr. Nirav Reed, PGY-3 <Pravin Gastelum - Last Filed: 06/12/17 18:19> Objective - Vital Signs/Intake and Output Vital Signs (last 24 hours): Temp Pulse Resp BP Pulse Ox 98.2 F 82 20 115/71 94 L 06/12/17 17:17 06/12/17 17:17 06/12/17 17:17 06/12/17 17:17 06/12/17 17:17 Intake and Output: 06/12/17 06/12/17 06:59 18:59 Intake Total 1040 800 Output Total 800 Balance 240 800 - Medications Medications: Current Medications Enoxaparin Sodium (Lovenox) 40 mg SC DAILY [facility] Last Admin: 06/12/17 09:59 Dose: 40 mg Famotidine (Pepcid) 20 mg IVP DAILY [facility] Last Admin: 06/12/17 10:00 Dose: 20 mg Sodium Chloride (Sodium Chloride 0.9%) 1,000 mls @ 130 mls/hr IV .Q7H42M [facility] Last Admin: 06/12/17 11:50 Dose: Not Given Meropenem 1 gm/ Sodium (Chloride) 50 mls @ 100 mls/hr IVPB Q8 [facility] PRN Reason: Protocol Last Admin: 06/12/17 16:23 Dose: 100 mls/hr Ketorolac Tromethamine (Toradol) 30 mg IVP Q6 PRN PRN Reason: Pain, moderate (4-7) Morphine Sulfate (Morphine) 1 mg IV Q6 PRN PRN Reason: Pain, severe (8-10) Ondansetron HCl (Zofran Inj) 4 mg IVP Q6H PRN PRN Reason: Nausea/Vomiting Pneumococcal Polyvalent Vaccine (Pneumovax 23 Vaccine) 0.5 ml IM .ONCE ONE Stop: 06/14/17 10:01 Saccharomyces Boulardii (Florastor) 250 mg PO BID [facility] Tamsulosin HCl (Flomax) 0.4 mg PO DAILY [facility] Last Admin: 06/12/17 11:00 Dose: 0.4 mg - Labs Labs: 06/12/17 06:10 06/12/17 06:10 PT 15.0 SECONDS (9.7-12.2) H 06/11/17 20:30 INR 1.3 06/11/17 20:30 APTT 30 SECONDS (21-34) 06/11/17 20:30 Attending/Attestation - Attestation I have personally seen and examined this patient.: Yes I have fully participated in the care of the patient.: Yes I have reviewed all pertinent clinical information, including history, physical exam and plan: Yes Notes (Text): Pt was seen and examined at bedside Agree with above note and assessment Pt with Sigmoid diverticulitis with abscess CT scan : suggestive of one drop of free intraperitoneal air Labs and radiology reviewed Ass: Sigmoid diverticulitis with microperforation Plan : Pt would need IV antibiotics Clinically pt looks improved. No peritoneal signs IV antibiotics Plan d.w pt in detail Risk and benefit explained in detail.
--- NOTE | 2017-06-12 12:29 | CP.PCM.CON ---
History of Present Illness - History of Present Illness History of Present Illness: 61 year old male PMHx of Diverticulitis presents to the ED with complaints LLQ abdominal pain, The pain woke him up at 2AM last night and persisted today thus he decided to come to ED. The patient was admitted in late April of this year with a diagnosis of diverticulitis of sigmoid colon. He was managed with antibiotics and discharged with 4 day course of antibiotics (which he completed). He did not follow up with a PMD or get a colonoscopy, as instructed, due to lack of insurance. CT imaging of the abdomen showed a sigmoid abscess with free peritoneal air. 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 Denies Tobacco and admits to drinking alcohol socially Allergies: Denies, NKDA FamHx: Father has HTN, Mother has heart disease Review of Systems - Review of Systems All systems: reviewed and no additional remarkable complaints except - Constitutional Constitutional: As Per HPI - EENT Eyes: absent: As Per HPI, Blind Spots, Blurred Vision, Change in Vision, Decreased Night Vision, Diplopia, Discharge, Dry Eye, Exophthalmos, Floaters, Irritation, Itchy Eyes, Loss of Peripheral Vision, Pain, Photophobia, Requires Corrective Lenses, Sees Flashes, Spots in Vision, Tunnel Vision, Other Visual Disturbances, Loss of Vision, Other Ears: absent: As Per HPI, Decreased Hearing, Ear Discharge, Ear Pain, Tinnitus, Abnormal Hearing, Disequilibrium, Dizziness, Other Nose/Mouth/Throat: absent: As Per HPI, Epistaxis, Nasal Congestion, Nasal Discharge, Nasal Obstruction, Nasal Trauma, Nose Pain, Post Nasal Drip, Sinus Pain, Sinus Pressure, Bleeding Gums, Change in Voice, Dental Pain, Dry Mouth, Dysphagia, Halitosis, Hoarsness, Lip Swelling, Mouth Lesions, Mouth Pain, Odynophagia, Sore Throat, Throat Swelling, Tongue Swelling, Facial Pain, Neck Pain, Neck Mass, Other - Cardiovascular Cardiovascular: absent: As Per HPI, Acrocyanosis, Chest Pain, Chest Pain at Rest , Chest Pain with Activity, Claudication, Diaphoresis, Dyspnea, Dyspnea on Exertion, Edema, Irregular Heart Rhythm, Pain Radiating to Arm/Neck/Jaw, Leg Edema, Leg Ulcers, Lightheadedness, Orthopnea, Palpitations, Paroxysmal Nocturnal Dyspnea, Pedal Edema, Radiating Pain, Rapid Heart Rate, Slow Heart Rate, Syncope, Other - Respiratory Respiratory: absent: As Per HPI, Cough, Dyspnea, Hemoptysis, Dyspnea on Exertion , Wheezing, Snoring, Stridor, Pain on Inspiration, Chest Congestion, Excessive Mucous Production, Change in Mucous Color, Pain with Coughing, Other - Gastrointestinal Gastrointestinal: As Per HPI - Genitourinary Genitourinary: absent: As Per HPI, Change in Urinary Stream, Difficulty Urinating, Dysuria, Flank Pain, Hematuria, Pyuria, Nocturia, Urinary Incontinence, Urinary Frequency, Urinary Hesitance, Urinary Urgency, Voiding Freq/Small Amts, Freq UTI, Hx Renal/Bladder Calculi, Hx /Renal Surgery, Bladder Distension, Other - Musculoskeletal Musculoskeletal: absent: As Per HPI, Abnormal Gait, Arthralgias, Atrophy, Back Pain, Deformity, Joint Swelling, Limited Range of Motion, Loss of Height, Muscle Cramps, Muscle Weakness, Myalgias, Neck Pain, Numbness, Radiating Pain into Limb, Stiffness, Tingling, Other - Integumentary Integumentary: absent: As Per HPI, Acne, Alopecia, Bleeding Lesions, Change in Hair, Change in Nails, Change in Pigmentation, Changing Lesions, Dry Skin, Erythema, Furuncle, Hirsutism, Lesions, New Lesions, Non-Healing Lesions, Photosensitivity, Pruritus, Rash, Skin Pain, Skin Ulcer, Sores, Striae, Swelling , Unusual Bruising, Wounds, Jaundice, Other - Neurological Neurological: absent: As Per HPI, Abnormal Gait, Abnormal Hearing, Abnormal Movements, Abnormal Speech, Behavioral Changes, Burning Sensations, Confusion, Convulsions, Disequilibrium, Dizziness, Numbness, Focal Weakness, Frequent Falls , Headaches, Lack of Coordination, Loss of Vision, Memory Loss, Paresthesias, Radicular Pain, Restless Legs, Sensory Deficit, Syncope, Tingling, Tremor, Vertigo, Weakness, Other Visual Disturbances, Other - Psychiatric Psychiatric: absent: As Per HPI, Abnormal Sleep Pattern, Anhedonia, Anxiety, Auditory Hallucinations, Behavioral Changes, Change in Appetite, Change in Libido, Confusion, Depression, Difficulty Concentrating, Hallucinations, Homicidal Ideation, Hopelessness, Irritability, Memory Loss, Mood Swings, Panic Attacks, Paranoia, Suicidal Ideation, Visual Hallucinations, Tactile Hallucinations, Other - Endocrine Endocrine: absent: As Per HPI, Change in Body Appearance, Change in Libido, Cold Intolorance, Deepening of Voice, Excessive Sweating, Fatigue, Flushing, Heat Intolorance, Increase in Ring/Shoe/Hat Size, Palpitations, Polydipsia, Polyphagia, Polyuria, Other - Hematologic/Lymphatic Hematologic: absent: As Per HPI, Easy Bleeding, Easy Bruising, Lymphadenopathy, Other Past Patient History - Infectious Disease Hx of Infectious Diseases: None - Past Medical History & Family History Past Medical History?: Yes - Past Social History Smoking Status: Never Smoked - CARDIAC Hx Cardiac Disorders: No - PULMONARY Hx Respiratory Disorders: No - NEUROLOGICAL Hx Neurological Disorder: No - HEENT Hx HEENT Problems: No - RENAL Hx Chronic Kidney Disease: Yes Hx Kidney Stones: Yes - ENDOCRINE/METABOLIC Hx Endocrine Disorders: No - HEMATOLOGICAL/ONCOLOGICAL Hx Blood Disorders: No - INTEGUMENTARY Hx Dermatological Problems: No - MUSCULOSKELETAL/RHEUMATOLOGICAL Hx Musculoskeletal Disorders: No Hx Falls: No - GASTROINTESTINAL Hx Gastrointestinal Disorders: Yes Hx Diverticulitis: Yes - GENITOURINARY/GYNECOLOGICAL Hx Genitourinary Disorders: No - PSYCHIATRIC Hx Psychophysiologic Disorder: No Hx Substance Use: No - SURGICAL HISTORY Hx Surgeries: No - ANESTHESIA Hx Anesthesia: No Hx Anesthesia Reactions: No Hx Malignant Hyperthermia: No Has any member of the family had a problem w/ anesthesia?: No Meds Allergies/Adverse Reactions: Allergies Allergy/AdvReac Type Severity Reaction Status Date / Time No Known Allergies Allergy Verified 06/11/17 14:43 - Medications Medications: Current Medications Enoxaparin Sodium (Lovenox) 40 mg SC DAILY [facility] Last Admin: 06/12/17 09:59 Dose: 40 mg Famotidine (Pepcid) 20 mg IVP DAILY [facility] Last Admin: 06/12/17 10:00 Dose: 20 mg Hydromorphone HCl (Dilaudid) 0.5 mg IVP Q4H PRN PRN Reason: Pain, moderate (4-7) Sodium Chloride (Sodium Chloride 0.9%) 1,000 mls @ 130 mls/hr IV .Q7H42M [facility] Last Admin: 06/12/17 11:50 Dose: Not Given Meropenem 1 gm/ Sodium (Chloride) 50 mls @ 100 mls/hr IVPB Q8 [facility] PRN Reason: Protocol Ondansetron HCl (Zofran Inj) 4 mg IVP Q6H PRN PRN Reason: Nausea/Vomiting Pneumococcal Polyvalent Vaccine (Pneumovax 23 Vaccine) 0.5 ml IM .ONCE ONE Stop: 06/14/17 10:01 Tamsulosin HCl (Flomax) 0.4 mg PO DAILY [facility] Last Admin: 06/12/17 11:00 Dose: 0.4 mg Physical Exam - Constitutional Appears: Non-toxic, Chronically Ill - Head Exam Head Exam: NORMOCEPHALIC - Eye Exam Eye Exam: PERRL. absent: Scleral icterus - ENT Exam ENT Exam: Mucous Membranes Dry, Normal External Ear Exam - Neck Exam Neck exam: Negative for: Lymphadenopathy - Respiratory Exam Respiratory Exam: Decreased Breath Sounds, Clear to Auscultation Bilateral - Cardiovascular Exam Cardiovascular Exam: REGULAR RHYTHM, +S1, +S2 - GI/Abdominal Exam GI & Abdominal Exam: Diminished Bowel Sounds, Distended, Guarding, Soft, Tenderness. absent: Organomegaly, Pulsatile Mass, Rebound, Rigid - Rectal Exam Rectal Exam: Deferred - Exam Exam: NORMAL INSPECTION - Extremities Exam Extremities exam: Positive for: pedal pulses present. Negative for: calf tenderness, pedal edema, tenderness - Back Exam Back exam: absent: CVA tenderness (L), CVA tenderness (R), paraspinal tenderness - Neurological Exam Neurological exam: Alert, CN II-XII Intact, Oriented x3, Reflexes Normal - Psychiatric Exam Psychiatric exam: Depressed - Skin Skin Exam: Dry Results - Vital Signs Recent Vital Signs: Last Vital Signs Temp 98.8 F 06/12/17 07:26 Pulse 76 06/12/17 07:26 Resp 20 06/12/17 07:26 BP 124/74 06/12/17 07:26 Pulse Ox 96 06/12/17 07:26 - Labs Result Diagrams: 06/12/17 06:10 06/12/17 06:10 Labs: Laboratory Results - last 24 hr 06/11/17 06/11/17 06/11/17 15:23 15:23 15:23 WBC 16.0 H D RBC 5.49 Hgb 16.6 Hct 48.2 MCV 87.7 MCH 30.1 MCHC 34.4 RDW 14.3 Plt Count 211 MPV 9.6 Neut % (Auto) 82.4 H Lymph % (Auto) 8.1 L Charles % (Auto) 8.7 Eos % (Auto) 0.1 Baso % (Auto) 0.7 Neut # (Auto) 13.2 H Lymph # (Auto) 1.3 Charles # (Auto) 1.4 H Eos # (Auto) 0.0 Baso # (Auto) 0.1 Neutrophils % (Manual) 82 H Lymphocytes % (Manual) 12 L Monocytes % (Manual) 6 Platelet Estimate Normal PT INR APTT Sodium 142 Potassium 4.3 Chloride 101 Carbon Dioxide 26 Anion Gap 19 BUN 16 Creatinine 1.0 Est GFR ( Amer) > 60 Est GFR (Non-Af Amer) > 60 Random Glucose 106 Calcium 9.7 Total Bilirubin 1.8 H AST 25 ALT 58 Alkaline Phosphatase 61 Total Protein 8.1 Albumin 4.5 Globulin 3.6 Albumin/Globulin Ratio 1.2 Lipase 224 Urine Color Yellow Urine Clarity Clear Urine pH 7.0 Ur Specific Troy 1.027 Urine Protein Negative Urine Glucose (UA) Normal Urine Ketones Negative Urine Blood Negative Urine Nitrate Negative Urine Bilirubin Negative Urine Urobilinogen Normal Ur Leukocyte Esterase Neg Urine WBC (Auto) 1 Urine RBC (Auto) 2 06/11/17 06/12/17 06/12/17 20:30 06:10 06:10 WBC 12.7 H RBC 4.79 Hgb 14.4 D Hct 42.0 MCV 87.6 MCH 30.1 MCHC 34.4 RDW 14.4 Plt Count 168 MPV 10.0 Neut % (Auto) 80.3 H Lymph % (Auto) 10.6 L Charles % (Auto) 8.7 Eos % (Auto) 0.1 Baso % (Auto) 0.3 Neut # (Auto) 10.2 H Lymph # (Auto) 1.3 Charles # (Auto) 1.1 H Eos # (Auto) 0.0 Baso # (Auto) 0.0 Neutrophils % (Manual) Lymphocytes % (Manual) Monocytes % (Manual) Platelet Estimate PT 15.0 H INR 1.3 APTT 30 Sodium 143 Potassium 4.0 Chloride 105 Carbon Dioxide 24 Anion Gap 17 BUN 12 Creatinine 1.1 Est GFR ( Amer) > 60 Est GFR (Non-Af Amer) > 60 Random Glucose 109 Calcium 8.7 Total Bilirubin 2.0 H AST 20 ALT 44 Alkaline Phosphatase 46 Total Protein 6.5 Albumin 3.5 D Globulin 3.0 Albumin/Globulin Ratio 1.2 Lipase Urine Color Urine Clarity Urine pH Ur Specific Troy Urine Protein Urine Glucose (UA) Urine Ketones Urine Blood Urine Nitrate Urine Bilirubin Urine Urobilinogen Ur Leukocyte Esterase Urine WBC (Auto) Urine RBC (Auto) Assessment & Plan (1) Abdominal pain Status: Acute (2) Diverticulitis of colon with perforation Status: Acute Priority: High (3) Perforation and abscess of large intestine concurrent with and due to diverticulitis Status: Acute - Assessment and Plan (Free Text) Assessment: IF ABSCESS DEEMED TOO SMALL TO DRAIN THEN CONT IV MERREM THEN IV INVANZ FOR MIN 3 WEEKS WITH GI AND SURG FOLLOW UP MAY NEED OR FOR HARTMANS PROCEDURE IF SYMPYOMS PERSIST / PROGRESS PROGNOSIS GUARDED
--- NOTE | 2017-06-12 12:39 | PCM.SURG1 ---
Surgeon's Initial Post Op Note - Surgeon's Notes Surgeon: Justin Paige MD [employer] W[employer] Operator: NONE Type of Anesthesia: Local Pre-Operative Diagnosis: Infection Operative Findings: US showed patent left basilic vein Post-Operative Diagnosis: Infection Operation Performed: Single lumen picc 43 cm left basilic vein. Tip is in the SVC. Specimen/Specimens Removed: None Estimated Blood Loss: EBL {In ML}: 2 Blood Products Given: N/A Drains Used: No Drains Post-Op Condition: Fair Date of Surgery/Procedure: 06/12/17 Time of Surgery/Procedure: 12:35
--- NOTE | 2017-06-12 14:21 | RAD ---
PROCEDURE: HISTORY: As above COMPARISON: None TECHNIQUE: Total fluoroscopic time utilized during the procedure: 5.5 seconds ; 0.94889 mGy cm 2 FINDINGS: Submitted images from the current procedure: 1 Please refer to the physician's notes performing the procedure. IMPRESSION: Less than 1 hour fluoroscopic time utilized during performance of the procedure
--- NOTE | 2017-06-12 16:10 | CP.PCM.PN ---
Subjective - Date & Time of Evaluation Date of Evaluation: 06/12/17 Time of Evaluation: 09:00 - Subjective Subjective: Medicine Note for Hospitalist Service- Dr. Mindi Lopez Patient was seen and examined at bedside. Patient reports his pain is well controlled. Denied any fever, chills, chest pain, SOB, abdominal pain, n/v/d/c, or urinary symptoms. Objective - Vital Signs/Intake and Output Vital Signs (last 24 hours): Temp Pulse Resp BP Pulse Ox 98.8 F 76 20 124/74 96 06/12/17 07:26 06/12/17 07:26 06/12/17 07:26 06/12/17 07:26 06/12/17 07:26 Intake and Output: 06/12/17 06/12/17 06:59 18:59 Intake Total 1040 800 Output Total 800 Balance 240 800 - Medications Medications: Current Medications Enoxaparin Sodium (Lovenox) 40 mg SC DAILY [facility] Last Admin: 06/12/17 09:59 Dose: 40 mg Famotidine (Pepcid) 20 mg IVP DAILY [facility] Last Admin: 06/12/17 10:00 Dose: 20 mg Hydromorphone HCl (Dilaudid) 0.5 mg IVP Q4H PRN PRN Reason: Pain, moderate (4-7) Sodium Chloride (Sodium Chloride 0.9%) 1,000 mls @ 130 mls/hr IV .Q7H42M [facility] Last Admin: 06/12/17 11:50 Dose: Not Given Meropenem 1 gm/ Sodium (Chloride) 50 mls @ 100 mls/hr IVPB Q8 [facility] PRN Reason: Protocol Ondansetron HCl (Zofran Inj) 4 mg IVP Q6H PRN PRN Reason: Nausea/Vomiting Pneumococcal Polyvalent Vaccine (Pneumovax 23 Vaccine) 0.5 ml IM .ONCE ONE Stop: 06/14/17 10:01 Tamsulosin HCl (Flomax) 0.4 mg PO DAILY [facility] Last Admin: 06/12/17 11:00 Dose: 0.4 mg - Labs Labs: 06/12/17 06:10 06/12/17 06:10 PT 15.0 SECONDS (9.7-12.2) H 06/11/17 20:30 INR 1.3 06/11/17 20:30 APTT 30 SECONDS (21-34) 06/11/17 20:30 - Additional Findings Additional findings: - Constitutional Appears: Well, Non-toxic, No Acute Distress - Head Exam Head Exam: ATRAUMATIC, NORMAL INSPECTION - Eye Exam Eye Exam: EOMI Pupil Exam: PERRL - ENT Exam ENT Exam: Mucous Membranes Moist - Neck Exam Neck exam: Positive for: Normal Inspection. Negative for: Lymphadenopathy - Respiratory Exam Respiratory Exam: Clear to Auscultation Bilateral, NORMAL BREATHING PATTERN. absent: Rales, Rhonchi, Wheezes - Cardiovascular Exam Cardiovascular Exam: REGULAR RHYTHM, RRR, +S1, +S2. absent: Bradycardia, Tachycardia, JVD, Systolic Murmur - GI/Abdominal Exam GI & Abdominal Exam: Normal Bowel Sounds, Rebound, Soft, Tenderness (( suprapubic and LLQ)) Additional comments: Mild Rebound tenderness. Voluntary guarding. Tender to palpation LLQ with radiation of pain into suprapubic area near pubic symphysis Soft, non-distended. Non-tympanic. No Velazquez's sign. No McBurney's point tenderness. - Rectal Exam Rectal Exam: Deferred - Extremities Exam Extremities exam: Positive for: full ROM, normal capillary refill, normal inspection, pedal pulses present. Negative for: pedal edema, tenderness - Back Exam Back exam: NORMAL INSPECTION. absent: CVA tenderness (L), CVA tenderness (R), tenderness - Neurological Exam Neurological exam: Alert, Oriented x3 - Psychiatric Exam Psychiatric exam: Normal Affect, Normal Mood - Skin Skin Exam: Intact, Normal Color, Warm Assessment and Plan - Assessment and Plan (Free Text) Plan: Diverticulitis, Diverticular Abscess with perforation Assessment and Plan: General Surgery consult, Dr Gastelum On admission patient met SIRS criteria (tachy, leukocytosis) with confirmed source of infection--> sepsis Will monitor the patient's clinical course and make further recommendations as necessary Patient will benefit from GI evaluation 6 weeks after symptom resolution for elective colonoscopy PICC LINE PLACED: will need Invanz 1 gram x [address] Hines -upon discharge F/U Blood Cx Imaging: CT abd/pelvis w/ IV contrast: There is sigmoid diverticulitis with perforation. There is a 2.3 x 1.7 x 1.5 cm thick walled abscess anterior to the inflamed sigmoid. Meds: IVF w/ NS @ 130cc/hr Meropenem 1gram IVP Q8H (started 06/12/17) Pain management with Morphine and Toradol as needed Florastor 250mg PO BID Enlarged prostate Assessment and Plan: Offers complaints of frequent urge to urinate, getting up at night to urinate , difficulty urinating and dribbling of urine CT abd/pelvis w/ IV contrast: Prostate is mildly enlarged. F/U PSA Meds: Started on Flomax 0.4mg PO daily Kidney stone on left side Assessment and Plan: CT abd/pelvis w/ IV contrast: There is a non-obstructing left renal stone. UA - no blood Prophylactic measure Assessment and Plan: DVT:SCDs, Lovenox 40mg SC QD GI PPX:Pepcid 20mg IVP QD NPO DW Dr. Mindi Lopez, Eugenia Gardner DO, PGY-1
--- NOTE | 2017-06-12 21:19 | CARD ---
APPROVED REPORT EKG Measurement Heart [id number] <Conclusion> Normal sinus rhythm Moderate voltage criteria for LVH, may be normal variant Borderline ECG
[2017-06-13] MEDS: Sodium Chloride 0.9% 1,000 ML IV SCH ×3 (05:02→17:53)
[2017-06-13] MEDS: Saccharomyces Boulardi 250 mg Cap PO SCH ×3 (05:06→17:50)
--- NOTE | 2017-06-13 07:41 | CP.PCM.PN ---
<Eugenio Delacruz Milvia - Last Filed: 06/13/17 13:19> Subjective - Date & Time of Evaluation Date of Evaluation: 06/13/17 Time of Evaluation: 06:55 - Subjective Subjective: General Surgery: Dr Gastelum Pt S&E. NAEO. Afebrile and VSS. States pain is mildly improved. Denies n/v , f/c, sob or chest pain. Has been OOB. Remains NPO. Objective - Vital Signs/Intake and Output Vital Signs (last 24 hours): Temp Pulse Resp BP Pulse Ox 99.4 F 77 20 126/69 96 06/13/17 00:00 06/13/17 00:00 06/13/17 00:00 06/13/17 00:00 06/13/17 00:00 Intake and Output: 06/13/17 06/13/17 06:59 18:59 Intake Total 980 Balance 980 - Medications Medications: Current Medications Enoxaparin Sodium (Lovenox) 40 mg SC DAILY [facility] Last Admin: 06/12/17 09:59 Dose: 40 mg Famotidine (Pepcid) 20 mg IVP DAILY [facility] Last Admin: 06/12/17 10:00 Dose: 20 mg Sodium Chloride (Sodium Chloride 0.9%) 1,000 mls @ 130 mls/hr IV .Q7H42M [facility] Last Admin: 06/13/17 05:02 Dose: 130 mls/hr Meropenem 1 gm/ Sodium (Chloride) 50 mls @ 100 mls/hr IVPB Q8 JULIO CESAR PRN Reason: Protocol Last Admin: 06/13/17 05:03 Dose: 100 mls/hr Ketorolac Tromethamine (Toradol) 30 mg IVP Q6 PRN PRN Reason: Pain, moderate (4-7) Morphine Sulfate (Morphine) 1 mg IV Q6 PRN PRN Reason: Pain, severe (8-10) Ondansetron HCl (Zofran Inj) 4 mg IVP Q6H PRN PRN Reason: Nausea/Vomiting Pneumococcal Polyvalent Vaccine (Pneumovax 23 Vaccine) 0.5 ml IM .ONCE ONE Stop: 06/14/17 10:01 Saccharomyces Boulardii (Florastor) 250 mg PO BID [facility] Last Admin: 06/13/17 05:06 Dose: 250 mg Tamsulosin HCl (Flomax) 0.4 mg PO DAILY [facility] Last Admin: 06/12/17 11:00 Dose: 0.4 mg - Labs Labs: 06/12/17 06:10 06/12/17 06:10 PT 15.0 SECONDS (9.7-12.2) H 06/11/17 20:30 INR 1.3 06/11/17 20:30 APTT 30 SECONDS (21-34) 06/11/17 20:30 - Constitutional Appears: Non-toxic, In Acute Distress - ENT Exam ENT Exam: Normal Exam - Respiratory Exam Respiratory Exam: absent: Accessory Muscle Use, Respiratory Distress - Cardiovascular Exam Cardiovascular Exam: REGULAR RHYTHM, +S1, +S2. absent: Tachycardia - GI/Abdominal Exam GI & Abdominal Exam: Soft, Tenderness (suprapubic and LLQ). absent: Distended, Firm, Guarding, Rigid, Hernia - Back Exam Back Exam: absent: tenderness - Neurological Exam Neurological Exam: Alert, Awake - Psychiatric Exam Psychiatric exam: Normal Affect, Normal Mood - Skin Skin Exam: Dry, Intact, Normal Color, Warm Assessment and Plan - Assessment and Plan (Free Text) Assessment: 61M with diverticulitis Plan: cont abx cont IV fluids remain NPO for now d/w Dr Nirav Delacruz, PGY3 <Pravin Gastelum B - Last Filed: 06/15/17 13:37> Objective - Vital Signs/Intake and Output Vital Signs (last 24 hours): Temp Pulse Resp BP Pulse Ox 97.6 F 72 20 137/82 97 06/15/17 08:33 06/15/17 08:33 06/15/17 08:33 06/15/17 08:33 06/15/17 08:33 Intake and Output: 06/15/17 06/15/17 06:59 18:59 Intake Total 400 340 Output Total 500 Balance -100 340 - Labs Labs: 06/15/17 07:11 06/15/17 07:11 PT 15.0 SECONDS (9.7-12.2) H 06/11/17 20:30 INR 1.3 06/11/17 20:30 APTT 30 SECONDS (21-34) 06/11/17 20:30 Attending/Attestation - Attestation I have fully participated in the care of the patient.: Yes I have reviewed all pertinent clinical information, including history, physical exam and plan: Yes Notes (Text): Pt with Diverticulitis Improving clinically No fever overnight Serial abdominal exam Repeat CBC, BMP in am Plan d.w pt in detail.
--- NOTE | 2017-06-13 08:09 | CP.PCM.PN ---
<Eugenia Gardner - Last Filed: 06/13/17 08:06> Subjective - Date & Time of Evaluation Date of Evaluation: 06/13/17 Time of Evaluation: 08:00 - Subjective Subjective: Medicine Note for Hospitalist Service- Dr. Mindi Lopez Patient was seen and examined at bedside. Patient reports he continues to have pain despite pain medication. Will advance diet as tolerated, for now NPO. Denied any fever, chills, chest pain, SOB, abdominal pain, n/v/d/c, or urinary symptoms. Objective - Vital Signs/Intake and Output Vital Signs (last 24 hours): Temp Pulse Resp BP Pulse Ox 99.4 F 77 20 126/69 96 06/13/17 00:00 06/13/17 00:00 06/13/17 00:00 06/13/17 00:00 06/13/17 00:00 Intake and Output: 06/13/17 06/13/17 06:59 18:59 Intake Total 980 Balance 980 - Medications Medications: Current Medications Enoxaparin Sodium (Lovenox) 40 mg SC DAILY [facility] Last Admin: 06/12/17 09:59 Dose: 40 mg Famotidine (Pepcid) 20 mg IVP DAILY [facility] Last Admin: 06/12/17 10:00 Dose: 20 mg Sodium Chloride (Sodium Chloride 0.9%) 1,000 mls @ 130 mls/hr IV .Q7H42M [facility] Last Admin: 06/13/17 05:02 Dose: 130 mls/hr Meropenem 1 gm/ Sodium (Chloride) 50 mls @ 100 mls/hr IVPB Q8 JULIO CESAR PRN Reason: Protocol Last Admin: 06/13/17 05:03 Dose: 100 mls/hr Ketorolac Tromethamine (Toradol) 30 mg IVP Q6 PRN PRN Reason: Pain, moderate (4-7) Morphine Sulfate (Morphine) 1 mg IV Q6 PRN PRN Reason: Pain, severe (8-10) Ondansetron HCl (Zofran Inj) 4 mg IVP Q6H PRN PRN Reason: Nausea/Vomiting Pneumococcal Polyvalent Vaccine (Pneumovax 23 Vaccine) 0.5 ml IM .ONCE ONE Stop: 06/14/17 10:01 Saccharomyces Boulardii (Florastor) 250 mg PO BID [facility] Last Admin: 06/13/17 05:06 Dose: 250 mg Tamsulosin HCl (Flomax) 0.4 mg PO DAILY [facility] Last Admin: 06/12/17 11:00 Dose: 0.4 mg - Labs Labs: 06/12/17 06:10 06/12/17 06:10 PT 15.0 SECONDS (9.7-12.2) H 06/11/17 20:30 INR 1.3 06/11/17 20:30 APTT 30 SECONDS (21-34) 06/11/17 20:30 - Additional Findings Additional findings: - Constitutional Appears: Well, Non-toxic, No Acute Distress - Head Exam Head Exam: ATRAUMATIC, NORMAL INSPECTION - Eye Exam Eye Exam: EOMI Pupil Exam: PERRL - ENT Exam ENT Exam: Mucous Membranes Moist - Neck Exam Neck exam: Positive for: Normal Inspection. Negative for: Lymphadenopathy - Respiratory Exam Respiratory Exam: Clear to Auscultation Bilateral, NORMAL BREATHING PATTERN. absent: Rales, Rhonchi, Wheezes - Cardiovascular Exam Cardiovascular Exam: REGULAR RHYTHM, RRR, +S1, +S2. absent: Bradycardia, Tachycardia, JVD, Systolic Murmur - GI/Abdominal Exam GI & Abdominal Exam: Normal Bowel Sounds, Rebound, Soft, Tenderness (( suprapubic and LLQ)) Additional comments: Tender to palpation LLQ with radiation of pain into suprapubic area near pubic symphysis Soft, non-distended. Non-tympanic. No Velazquez's sign. No McBurney's point tenderness. - Rectal Exam Rectal Exam: Deferred - Extremities Exam Extremities exam: Positive for: full ROM, normal capillary refill, normal inspection, pedal pulses present. Negative for: pedal edema, tenderness - Back Exam Back exam: NORMAL INSPECTION. absent: CVA tenderness (L), CVA tenderness (R), tenderness - Neurological Exam Neurological exam: Alert, Oriented x3 - Psychiatric Exam Psychiatric exam: Normal Affect, Normal Mood - Skin Skin Exam: Intact, Normal Color, Warm Assessment and Plan - Assessment and Plan (Free Text) Plan: Diverticulitis, Diverticular Abscess with perforation Assessment and Plan: General Surgery consult, Dr Gastelum On admission patient met SIRS criteria (tachy, leukocytosis) with confirmed source of infection--> sepsis Will monitor the patient's clinical course and make further recommendations as necessary Patient will benefit from GI evaluation 6 weeks after symptom resolution for elective colonoscopy PICC LINE PLACED: will need Invanz 1 gram x [address] Hines -upon discharge Blood Cx- no growth to date Imaging: CT abd/pelvis w/ IV contrast: There is sigmoid diverticulitis with perforation. There is a 2.3 x 1.7 x 1.5 cm thick walled abscess anterior to the inflamed sigmoid. Meds: IVF w/ NS @ 130cc/hr Meropenem 1gram IVP Q8H (started 06/12/17) Pain management with Morphine and Toradol as needed Florastor 250mg PO BID Enlarged prostate Assessment and Plan: Offers complaints of frequent urge to urinate, getting up at night to urinate , difficulty urinating and dribbling of urine CT abd/pelvis w/ IV contrast: Prostate is mildly enlarged. F/U PSA Meds: Started on Flomax 0.4mg PO daily Kidney stone on left side Assessment and Plan: CT abd/pelvis w/ IV contrast: There is a non-obstructing left renal stone. UA - no blood Prophylactic measure Assessment and Plan: DVT:SCDs, Lovenox 40mg SC QD GI PPX:Pepcid 20mg IVP QD NPO - will advance as tolerated DW Dr. Mindi Lopez, Eugenia Gardner DO, PGY-1 <Stanley Lopez - Last Filed: 06/13/17 18:19> Objective - Vital Signs/Intake and Output Vital Signs (last 24 hours): Temp Pulse Resp BP Pulse Ox 98.3 F 76 20 133/84 95 06/13/17 16:00 06/13/17 16:00 06/13/17 16:00 06/13/17 16:00 06/13/17 16:00 Intake and Output: 06/13/17 06/13/17 06:59 18:59 Intake Total 980 2150 Output Total 450 Balance 980 1700 - Medications Medications: Current Medications Enoxaparin Sodium (Lovenox) 40 mg SC DAILY [facility] Last Admin: 06/13/17 10:17 Dose: 40 mg Famotidine (Pepcid) 20 mg IVP DAILY [facility] Last Admin: 06/13/17 10:22 Dose: 20 mg Sodium Chloride (Sodium Chloride 0.9%) 1,000 mls @ 130 mls/hr IV .Q7H42M [facility] Last Admin: 06/13/17 17:53 Dose: 130 mls/hr Meropenem 1 gm/ Sodium (Chloride) 100 mls @ 100 mls/hr IVPB Q8 JULIO CESAR PRN Reason: Protocol Last Admin: 06/13/17 13:04 Dose: 100 mls/hr Ketorolac Tromethamine (Toradol) 30 mg IVP Q6 PRN PRN Reason: Pain, moderate (4-7) Morphine Sulfate (Morphine) 1 mg IV Q6 PRN PRN Reason: Pain, severe (8-10) Ondansetron HCl (Zofran Inj) 4 mg IVP Q6H PRN PRN Reason: Nausea/Vomiting Pneumococcal Polyvalent Vaccine (Pneumovax 23 Vaccine) 0.5 ml IM .ONCE ONE Stop: 06/14/17 10:01 Saccharomyces Boulardii (Florastor) 250 mg PO BID [facility] Last Admin: 06/13/17 17:50 Dose: 250 mg Tamsulosin HCl (Flomax) 0.4 mg PO DAILY [facility] Last Admin: 06/13/17 10:17 Dose: 0.4 mg - Labs Labs: 06/13/17 11:23 06/13/17 11:23 PT 15.0 SECONDS (9.7-12.2) H 06/11/17 20:30 INR 1.3 06/11/17 20:30 APTT 30 SECONDS (21-34) 06/11/17 20:30 Attending/Attestation - Attestation I have personally seen and examined this patient.: Yes I have fully participated in the care of the patient.: Yes I have reviewed all pertinent clinical information, including history, physical exam and plan: Yes Notes (Text): 06/13/17 18:13 Patient was seen and examined at 9:30 AM 06/13/17 Exam, assessment and plan were gone over with the resident Also on ROS: Pain in RLQ that is a "pinching" pain when he stand to urinate but otherwise he does not experience the pain NO n/v NO bowel movement yet (has been NPO since admission ) Patient states that he is hungary Also on Exam: GI: upon palpation of bilateral UQ, he will feel a "pushing" pain in the bilateral LQ, NO rebound/guarding Assessments: 1). Diverticulitis with Perforation/Sigmoid Abscess S/P PICC Line Left Basilic Vein Meropenem 1 gm IV Q8H Will switch to Invanz to complete a 3 week course to be given at [facility] (if NO insurance) or through home infusion (if patient' s insurance is approved: his family to bring in paperwork once it arrives to be given to [employer] Eve) Awaiting clearance from Surgery Team as to when to start feeding patient 2). BPH as per CT Flomax 3). Left Nonobstructing Nephrolithiasis as per CT Stanley Lopez D.O.
[2017-06-13] MEDS: Enoxaparin 40 mg Syringe SC SCH (10:17)
[2017-06-13 11:30] LABS: BASO % 0.5 % (0.0-2.0); EOS % 0.3 % (0.0-4.0); HEMOGLOBIN 14.3 g/dL (12.0-18.0); LYMPH # 0.8 K/uL (1.0-4.3); LYMPH % 7.9 % (20.0-40.0); MEAN CELL VOLUME 87.8 fL (80.0-94.0); MEAN CORPUSCULAR HEMOGLOBIN 30.2 pg (27.0-31.0); MEAN CORPUSCULAR HGB CONC 34.5 g/dL (33.0-37.0); MEAN PLATELET VOLUME 9.8 fL (7.2-11.7); MONO # 0.9 K/uL (0.0-0.8); MONO % 9.4 % (0.0-10.0); NEUT # 8.2 K/uL (1.8-7.0); NEUT % 81.9 % (50.0-75.0); PLATELET COUNT 160 K/uL (130-400); RBC 4.72 Mil/uL (4.40-5.90); RED CELL DISTRIBUTION WIDTH 14.3 % (11.5-14.5)
[2017-06-13 11:46] LABS: ALB/GLOB RATIO 0.9 (1.0-2.1); ALBUMIN 3.5 g/dL (3.5-5.0); ALT/SGPT 52 U/L (21-72); AST/SGOT 31 U/L (17-59); BLOOD UREA NITROGEN 11 mg/dL (9-20); CALCIUM 8.7 mg/dl (8.6-10.4); GFR AFRICAN-AMERICAN > 60; GFR NON-AFRICAN AMERICAN > 60
[2017-06-13 11:58] LABS: LYMPHOCYTE 7 % (20-40); MONOCYTE 11 % (0-10); NEUTROPHIL 82 % (50-75); PLATELET ESTIMATE NORMAL (NORMAL); TOTAL CELLS COUNTED 100
[2017-06-14] MEDS: Sodium Chloride 0.9% 1,000 ML IV SCH ×2 (02:06→06:09)
--- NOTE | 2017-06-14 06:55 | CP.PCM.PN ---
<Eugenia Gardner - Last Filed: 06/14/17 06:49> Subjective - Date & Time of Evaluation Date of Evaluation: 06/14/17 Time of Evaluation: 07:00 - Subjective Subjective: Medicine Note for Hospitalist Service- Dr. Mindi Lopez Patient was seen and examined at bedside. Patient reports pain is less in severity. He is hungry. Pending Surgery reccs to advance diet, for now NPO. Denied any fever, chills, chest pain, SOB, abdominal pain, n/v/d/c, or urinary symptoms. Objective - Vital Signs/Intake and Output Vital Signs (last 24 hours): Temp Pulse Resp BP Pulse Ox 98.6 F 65 20 125/77 95 06/14/17 00:00 06/14/17 00:00 06/14/17 00:00 06/14/17 00:00 06/14/17 00:00 Intake and Output: 06/13/17 06/14/17 18:59 06:59 Intake Total 2150 2150 Output Total 450 500 Balance 1700 1650 - Medications Medications: Current Medications Enoxaparin Sodium (Lovenox) 40 mg SC DAILY [facility] Last Admin: 06/13/17 10:17 Dose: 40 mg Famotidine (Pepcid) 20 mg IVP DAILY [facility] Last Admin: 06/13/17 10:22 Dose: 20 mg Sodium Chloride (Sodium Chloride 0.9%) 1,000 mls @ 130 mls/hr IV .Q7H42M [facility] Last Admin: 06/14/17 06:09 Dose: 130 mls/hr Meropenem 1 gm/ Sodium (Chloride) 100 mls @ 100 mls/hr IVPB Q8 JULIO CESAR PRN Reason: Protocol Last Admin: 06/14/17 06:05 Dose: 100 mls/hr Ketorolac Tromethamine (Toradol) 30 mg IVP Q6 PRN PRN Reason: Pain, moderate (4-7) Morphine Sulfate (Morphine) 1 mg IV Q6 PRN PRN Reason: Pain, severe (8-10) Ondansetron HCl (Zofran Inj) 4 mg IVP Q6H PRN PRN Reason: Nausea/Vomiting Pneumococcal Polyvalent Vaccine (Pneumovax 23 Vaccine) 0.5 ml IM .ONCE ONE Stop: 06/14/17 10:01 Saccharomyces Boulardii (Florastor) 250 mg PO BID [facility] Last Admin: 06/13/17 17:50 Dose: 250 mg Tamsulosin HCl (Flomax) 0.4 mg PO DAILY [facility] Last Admin: 06/13/17 10:17 Dose: 0.4 mg - Labs Labs: 06/13/17 11:23 06/13/17 11:23 PT 15.0 SECONDS (9.7-12.2) H 06/11/17 20:30 INR 1.3 06/11/17 20:30 APTT 30 SECONDS (21-34) 06/11/17 20:30 - Additional Findings Additional findings: - Constitutional Appears: Well, Non-toxic, No Acute Distress - Head Exam Head Exam: ATRAUMATIC, NORMAL INSPECTION - Eye Exam Eye Exam: EOMI Pupil Exam: PERRL - ENT Exam ENT Exam: Mucous Membranes Moist - Neck Exam Neck exam: Positive for: Normal Inspection. Negative for: Lymphadenopathy - Respiratory Exam Respiratory Exam: Clear to Auscultation Bilateral, NORMAL BREATHING PATTERN. absent: Rales, Rhonchi, Wheezes - Cardiovascular Exam Cardiovascular Exam: REGULAR RHYTHM, RRR, +S1, +S2. absent: Bradycardia, Tachycardia, JVD, Systolic Murmur - GI/Abdominal Exam GI & Abdominal Exam: Normal Bowel Sounds, Rebound, Soft, Tenderness ( LLQ) Additional comments: Tender to palpation LLQ Soft, non-distended. Non-tympanic. No Velazquez's sign. No McBurney's point tenderness. - Rectal Exam Rectal Exam: Deferred - Extremities Exam Extremities exam: Positive for: full ROM, normal capillary refill, normal inspection, pedal pulses present. Negative for: pedal edema, tenderness - Back Exam Back exam: NORMAL INSPECTION. absent: CVA tenderness (L), CVA tenderness (R), tenderness - Neurological Exam Neurological exam: Alert, Oriented x3 - Psychiatric Exam Psychiatric exam: Normal Affect, Normal Mood - Skin Skin Exam: Intact, Normal Color, Warm Assessment and Plan - Assessment and Plan (Free Text) Plan: Diverticulitis, Diverticular Abscess with perforation Assessment and Plan: General Surgery consult, Dr Gastelum On admission patient met SIRS criteria (tachy, leukocytosis) with confirmed source of infection--> sepsis Will monitor the patient's clinical course and make further recommendations as necessary Patient will benefit from GI evaluation 6 weeks after symptom resolution for elective colonoscopy PICC LINE PLACED: will need Invanz 1 gram x [address] Hines -upon discharge Blood Cx- no growth to date Pending surgery reccs for advancing diet Imaging: CT abd/pelvis w/ IV contrast: There is sigmoid diverticulitis with perforation. There is a 2.3 x 1.7 x 1.5 cm thick walled abscess anterior to the inflamed sigmoid. Meds: IVF w/ NS @ 130cc/hr Meropenem 1gram IVP Q8H (started 06/12/17) Pain management with Morphine and Toradol as needed Florastor 250mg PO BID BPH Assessment and Plan: Offers complaints of frequent urge to urinate, getting up at night to urinate , difficulty urinating and dribbling of urine CT abd/pelvis w/ IV contrast: Prostate is mildly enlarged. F/U PSA Meds: Started on Flomax 0.4mg PO daily Left Nonobstructing Nephrolithiasis Assessment and Plan: CT abd/pelvis w/ IV contrast: There is a non-obstructing left renal stone. UA - no blood Prophylactic measure Assessment and Plan: DVT:SCDs, Lovenox 40mg SC QD GI PPX:Pepcid 20mg IVP QD NPO - will advance as tolerated Disposition: Anticipate discharge Sunday06/15/17- pending IV infusion at home versus infusion center. And patient's tolerance of food. DW Dr. Mindi Lopez, Eugenia Gardner DO, PGY-1 <Stanley Lopez - Last Filed: 06/14/17 17:44> Objective - Vital Signs/Intake and Output Vital Signs (last 24 hours): Temp Pulse Resp BP Pulse Ox 98.3 F 71 20 122/72 96 06/14/17 15:27 06/14/17 15:27 06/14/17 15:27 06/14/17 15:27 06/14/17 15:27 Intake and Output: 06/14/17 06/14/17 06:59 18:59 Intake Total 2150 710 Output Total 500 Balance 1650 710 - Medications Medications: Current Medications Enoxaparin Sodium (Lovenox) 40 mg SC DAILY [facility] Last Admin: 06/14/17 09:33 Dose: 40 mg Meropenem 1 gm/ Sodium (Chloride) 100 mls @ 100 mls/hr IVPB Q8 JULIO CESAR PRN Reason: Protocol Last Admin: 06/14/17 13:30 Dose: 100 mls/hr Ketorolac Tromethamine (Toradol) 30 mg IVP Q6 PRN PRN Reason: Pain, moderate (4-7) Morphine Sulfate (Morphine) 1 mg IV Q6 PRN PRN Reason: Pain, severe (8-10) Ondansetron HCl (Zofran Inj) 4 mg IVP Q6H PRN PRN Reason: Nausea/Vomiting Saccharomyces Boulardii (Florastor) 250 mg PO BID [facility] Last Admin: 06/14/17 09:33 Dose: 250 mg Senna/Docusate Sodium (Senokot S 50 Mg-8.6 Mg) 1 tab PO Q12 PRN PRN Reason: Constipation Tamsulosin HCl (Flomax) 0.4 mg PO DAILY [facility] Last Admin: 06/14/17 09:33 Dose: 0.4 mg - Labs Labs: 06/14/17 06:58 06/14/17 06:58 PT 15.0 SECONDS (9.7-12.2) H 06/11/17 20:30 INR 1.3 06/11/17 20:30 APTT 30 SECONDS (21-34) 06/11/17 20:30 Attending/Attestation - Attestation I have personally seen and examined this patient.: Yes I have fully participated in the care of the patient.: Yes I have reviewed all pertinent clinical information, including history, physical exam and plan: Yes Notes (Text): 06/14/17 17:41 Patient was seen and examined at 11:00 AM 06/14/17 Exam, assessment and plan were gone over with the resident Also on ROS: Tolerating Clear Liquid Diet with NO N/V or abdominal pain after eating Moved his bowels today and they were normal: well formed, no blood/blackness RLQ pain when standing to urinate and pushing Also on Exam: GI: LLQ pain with palpation however NO rebound/guarding Assessments: 1). Diverticulitis with Perforation/Sigmoid Abscess PICC Line Left Basilic Vein Meropenem 1 gm IV Q8H Will switch to Invanz to complete a 3 week course to be given through home infusion (family member provided new insurance card to [employer] Worker Eve) Awaiting clearance from Surgery Team and anticipating that this will occur morning 06/15/17 as patient clinically is improved 2). BPH as per CT Flomax 3). Left Nonobstructing Nephrolithiasis as per CT Stanley Lopez D.O.
[2017-06-14 07:14] LABS: BASO # 0.1 K/uL (0.0-0.2); BASO % 0.8 % (0.0-2.0); EOS # 0.2 K/uL (0.0-0.7); EOS % 2.1 % (0.0-4.0); HEMOGLOBIN 14.9 g/dL (12.0-18.0); LYMPH # 1.3 K/uL (1.0-4.3); LYMPH % 18.2 % (20.0-40.0); MEAN CELL VOLUME 87.9 fL (80.0-94.0); MEAN CORPUSCULAR HEMOGLOBIN 30.9 pg (27.0-31.0); MEAN CORPUSCULAR HGB CONC 35.1 g/dL (33.0-37.0); MEAN PLATELET VOLUME 9.7 fL (7.2-11.7); MONO # 0.9 K/uL (0.0-0.8); MONO % 12.4 % (0.0-10.0); NEUT # 4.8 K/uL (1.8-7.0); NEUT % 66.5 % (50.0-75.0); NRBC % 0.1 % (0.0-2.0); RBC 4.82 Mil/uL (4.40-5.90); RED CELL DISTRIBUTION WIDTH 14.1 % (11.5-14.5); WHITE BLOOD COUNT 7.3 K/uL (4.8-10.8)
[2017-06-14 07:45] LABS: ALB/GLOB RATIO 1.1 (1.0-2.1); ALBUMIN 3.6 g/dL (3.5-5.0); ALT/SGPT 46 U/L (21-72); AST/SGOT 41 U/L (17-59); BLOOD UREA NITROGEN 13 mg/dL (9-20); GFR AFRICAN-AMERICAN > 60; GFR NON-AFRICAN AMERICAN > 60
--- NOTE | 2017-06-14 09:04 | CP.PCM.PN ---
<Heike Reed - Last Filed: 06/14/17 09:01> Subjective - Date & Time of Evaluation Date of Evaluation: 06/14/17 Time of Evaluation: 08:00 - Subjective Subjective: Surgery: Dr. Gastelum Pt seen and examined. No acute overnight events. States he's feeling well and pain is better than when he came in but still present. Admits to flatus but denies BM. Denies N/V,, F/C. Objective - Vital Signs/Intake and Output Vital Signs (last 24 hours): Temp Pulse Resp BP Pulse Ox 98.6 F 90 20 122/72 95 06/14/17 08:33 06/14/17 08:33 06/14/17 08:33 06/14/17 08:33 06/14/17 08:33 Intake and Output: 06/14/17 06/14/17 06:59 18:59 Intake Total 2150 Output Total 500 Balance 1650 - Medications Medications: Current Medications Enoxaparin Sodium (Lovenox) 40 mg SC DAILY [facility] Last Admin: 06/13/17 10:17 Dose: 40 mg Meropenem 1 gm/ Sodium (Chloride) 100 mls @ 100 mls/hr IVPB Q8 JULIO CESAR PRN Reason: Protocol Last Admin: 06/14/17 06:05 Dose: 100 mls/hr Ketorolac Tromethamine (Toradol) 30 mg IVP Q6 PRN PRN Reason: Pain, moderate (4-7) Morphine Sulfate (Morphine) 1 mg IV Q6 PRN PRN Reason: Pain, severe (8-10) Ondansetron HCl (Zofran Inj) 4 mg IVP Q6H PRN PRN Reason: Nausea/Vomiting Pneumococcal Polyvalent Vaccine (Pneumovax 23 Vaccine) 0.5 ml IM .ONCE ONE Stop: 06/14/17 10:01 Saccharomyces Boulardii (Florastor) 250 mg PO BID [facility] Last Admin: 06/13/17 17:50 Dose: 250 mg Tamsulosin HCl (Flomax) 0.4 mg PO DAILY [facility] Last Admin: 06/13/17 10:17 Dose: 0.4 mg - Labs Labs: 06/14/17 06:58 06/14/17 06:58 PT 15.0 SECONDS (9.7-12.2) H 06/11/17 20:30 INR 1.3 06/11/17 20:30 APTT 30 SECONDS (21-34) 06/11/17 20:30 - Constitutional Appears: Well, No Acute Distress - Head Exam Head Exam: ATRAUMATIC, NORMOCEPHALIC - Eye Exam Eye Exam: Normal appearance - ENT Exam ENT Exam: Mucous Membranes Moist - Respiratory Exam Respiratory Exam: NORMAL BREATHING PATTERN - Cardiovascular Exam Cardiovascular Exam: RRR - GI/Abdominal Exam GI & Abdominal Exam: Soft, Tenderness (to deep palpation in the LLQ ). absent: Distended - Neurological Exam Neurological Exam: Alert, Awake, Oriented x3 - Skin Skin Exam: Dry, Warm Assessment and Plan - Assessment and Plan (Free Text) Assessment: 61M with diverticulitis and microperforation; [place] Stage Ia Plan: - start CLD - encourage ambulation - cont serial abdominal exams - cont IV ABX - d/w Dr. Gastelum who agrees with above Derek, PGY-3 <Pravin Gastelum - Last Filed: 06/15/17 13:41> Objective - Vital Signs/Intake and Output Vital Signs (last 24 hours): Temp Pulse Resp BP Pulse Ox 97.6 F 72 20 137/82 97 06/15/17 08:33 06/15/17 08:33 06/15/17 08:33 06/15/17 08:33 06/15/17 08:33 Intake and Output: 06/15/17 06/15/17 06:59 18:59 Intake Total 400 340 Output Total 500 Balance -100 340 - Labs Labs: 06/15/17 07:11 06/15/17 07:11 PT 15.0 SECONDS (9.7-12.2) H 06/11/17 20:30 INR 1.3 06/11/17 20:30 APTT 30 SECONDS (21-34) 06/11/17 20:30 Attending/Attestation - Attestation I have personally seen and examined this patient.: Yes I have fully participated in the care of the patient.: Yes I have reviewed all pertinent clinical information, including history, physical exam and plan: Yes Notes (Text): Pt was seen and examined at bedside Agree with above note and assessment Pt is improving clinically No fever overnight Advance diet to Clear liquid Repeat CBC, BMP in am Plan d.w pt in detail. DC plan
[2017-06-14] MEDS: Saccharomyces Boulardi 250 mg Cap PO SCH ×2 (09:33→17:53)
[2017-06-14] MEDS: Enoxaparin 40 mg Syringe SC SCH (09:33)
[2017-06-14] MEDS ORDERED: Pneumococcal 23-Valent Vaccine IM ONE (10:00)
[2017-06-14] MEDS ORDERED: Docusate-Senna 50 mg-8.6 mg Tab PO PRN (10:00)
[2017-06-14 15:54] LABS: TOTAL PSA 1.2 ng/mL (< or = 4.0)
--- NOTE | 2017-06-14 18:44 | CP.PCM.PN ---
Subjective - Date & Time of Evaluation Date of Evaluation: 06/14/17 Time of Evaluation: 08:00 - Subjective Subjective: slow progress iv rx renewed prognosis guarded Objective - Vital Signs/Intake and Output Vital Signs (last 24 hours): Temp Pulse Resp BP Pulse Ox 98.3 F 71 20 122/72 96 06/14/17 15:27 06/14/17 15:27 06/14/17 15:27 06/14/17 15:27 06/14/17 15:27 Intake and Output: 06/14/17 06/14/17 06:59 18:59 Intake Total 2150 710 Output Total 500 Balance 1650 710 - Medications Medications: Current Medications Enoxaparin Sodium (Lovenox) 40 mg SC DAILY [facility] Last Admin: 06/14/17 09:33 Dose: 40 mg Meropenem 1 gm/ Sodium (Chloride) 100 mls @ 100 mls/hr IVPB Q8 [facility] PRN Reason: Protocol Last Admin: 06/14/17 13:30 Dose: 100 mls/hr Ketorolac Tromethamine (Toradol) 30 mg IVP Q6 PRN PRN Reason: Pain, moderate (4-7) Ondansetron HCl (Zofran Inj) 4 mg IVP Q6H PRN PRN Reason: Nausea/Vomiting Saccharomyces Boulardii (Florastor) 250 mg PO BID [facility] Last Admin: 06/14/17 17:53 Dose: 250 mg Senna/Docusate Sodium (Senokot S 50 Mg-8.6 Mg) 1 tab PO Q12 PRN PRN Reason: Constipation Tamsulosin HCl (Flomax) 0.4 mg PO DAILY [facility] Last Admin: 06/14/17 09:33 Dose: 0.4 mg - Labs Labs: 06/14/17 06:58 06/14/17 06:58 PT 15.0 SECONDS (9.7-12.2) H 06/11/17 20:30 INR 1.3 06/11/17 20:30 APTT 30 SECONDS (21-34) 06/11/17 20:30 - Constitutional Appears: Non-toxic, Chronically Ill - Head Exam Head Exam: NORMOCEPHALIC - Eye Exam Eye Exam: PERRL - ENT Exam ENT Exam: Mucous Membranes Dry - Neck Exam Neck Exam: absent: Lymphadenopathy - Respiratory Exam Respiratory Exam: Decreased Breath Sounds - Cardiovascular Exam Cardiovascular Exam: REGULAR RHYTHM - GI/Abdominal Exam GI & Abdominal Exam: Distended, Soft, Tenderness - Rectal Exam Rectal Exam: Deferred - Exam Exam: NORMAL INSPECTION - Extremities Exam Extremities Exam: absent: Pedal Edema - Back Exam Back Exam: absent: CVA tenderness (L), CVA tenderness (R) Assessment and Plan (1) Abdominal pain Status: Acute (2) Diverticulitis of colon with perforation Status: Acute (3) Perforation and abscess of large intestine concurrent with and due to diverticulitis Status: Acute - Assessment and Plan (Free Text) Assessment: cont iv rx for min 3 weeks with follow up CT and surgical eval
[2017-06-15 07:25] LABS: BASO # 0.1 K/uL (0.0-0.2); BASO % 0.9 % (0.0-2.0); EOS # 0.2 K/uL (0.0-0.7); EOS % 3.4 % (0.0-4.0); HEMOGLOBIN 15.4 g/dL (12.0-18.0); LYMPH # 1.7 K/uL (1.0-4.3); LYMPH % 26.3 % (20.0-40.0); MEAN CELL VOLUME 87.7 fL (80.0-94.0); MEAN CORPUSCULAR HEMOGLOBIN 30.4 pg (27.0-31.0); MEAN CORPUSCULAR HGB CONC 34.6 g/dL (33.0-37.0); MEAN PLATELET VOLUME 9.4 fL (7.2-11.7); NEUT # 3.6 K/uL (1.8-7.0); NEUT % 54.4 % (50.0-75.0); NRBC % 0.1 % (0.0-2.0); RBC 5.07 Mil/uL (4.40-5.90); RED CELL DISTRIBUTION WIDTH 13.8 % (11.5-14.5); WHITE BLOOD COUNT 6.6 K/uL (4.8-10.8)
[2017-06-15 07:59] LABS: ALB/GLOB RATIO 1.1 (1.0-2.1); ALBUMIN 3.8 g/dL (3.5-5.0); ALT/SGPT 67 U/L (21-72); AST/SGOT 58 U/L (17-59); BLOOD UREA NITROGEN 12 mg/dL (9-20); CALCIUM 9.4 mg/dl (8.6-10.4); GFR AFRICAN-AMERICAN > 60; GFR NON-AFRICAN AMERICAN > 60
[2017-06-15 08:37] VITALS: BP 137/82; PULSE 72; TEMP 97.6; O2SAT 97
--- NOTE | 2017-06-15 09:25 | CP.PCM.DIS ---
<Eugenia Gardner - Last Filed: 06/15/17 09:21> Provider - Provider Date of Admission: 06/11/17 19:31 Attending physician: Stanley Lopez MD Time Spent in preparation of Discharge (in minutes): 55 Hospital Course - Lab Results Lab Results: Micro Results 06/11/17 18:30 Blood Blood Culture - Preliminary NO GROWTH AFTER 3 DAYS 06/11/17 19:00 Blood Blood Culture - Preliminary NO GROWTH AFTER 3 DAYS Most Recent Lab Values WBC 6.6 K/uL (4.8-10.8) 06/15/17 07:11 RBC 5.07 Mil/uL (4.40-5.90) 06/15/17 07:11 Hgb 15.4 g/dL (12.0-18.0) 06/15/17 07:11 Hct 44.4 % (35.0-51.0) 06/15/17 07:11 MCV 87.7 fL (80.0-94.0) 06/15/17 07:11 MCH 30.4 pg (27.0-31.0) 06/15/17 07:11 MCHC 34.6 g/dL (33.0-37.0) 06/15/17 07:11 RDW 13.8 % (11.5-14.5) 06/15/17 07:11 Plt Count 234 K/uL (130-400) 06/15/17 07:11 MPV 9.4 fL (7.2-11.7) 06/15/17 07:11 Neut % (Auto) 54.4 % (50.0-75.0) 06/15/17 07:11 Lymph % (Auto) 26.3 % (20.0-40.0) 06/15/17 07:11 Cooper % (Auto) 15.0 % (0.0-10.0) H 06/15/17 07:11 Eos % (Auto) 3.4 % (0.0-4.0) 06/15/17 07:11 Baso % (Auto) 0.9 % (0.0-2.0) 06/15/17 07:11 Neut # (Auto) 3.6 K/uL (1.8-7.0) 06/15/17 07:11 Lymph # (Auto) 1.7 K/uL (1.0-4.3) 06/15/17 07:11 Cooper # (Auto) 1.0 K/uL (0.0-0.8) H 06/15/17 07:11 Eos # (Auto) 0.2 K/uL (0.0-0.7) 06/15/17 07:11 Baso # (Auto) 0.1 K/uL (0.0-0.2) 06/15/17 07:11 Neutrophils % (Manual) 82 % (50-75) H 06/13/17 11:23 Lymphocytes % (Manual) 7 % (20-40) L 06/13/17 11:23 Monocytes % (Manual) 11 % (0-10) H 06/13/17 11:23 Platelet Estimate Normal (NORMAL) 06/13/17 11:23 PT 15.0 SECONDS (9.7-12.2) H 06/11/17 20:30 INR 1.3 06/11/17 20:30 APTT 30 SECONDS (21-34) 06/11/17 20:30 Sodium 140 mmol/L (132-148) 06/15/17 07:11 Potassium 4.2 mmol/L (3.6-5.2) 06/15/17 07:11 Chloride 102 mmol/L (98-107) 06/15/17 07:11 Carbon Dioxide 23 mmol/L (22-30) 06/15/17 07:11 Anion Gap 19 (10-20) 06/15/17 07:11 BUN 12 mg/dL (9-20) 06/15/17 07:11 Creatinine 0.9 mg/dL (0.8-1.5) 06/15/17 07:11 Est GFR ( Amer) > 60 06/15/17 07:11 Est GFR (Non-Af Amer) > 60 06/15/17 07:11 Random Glucose 80 mg/dL (75-110) 06/15/17 07:11 Calcium 9.4 mg/dl (8.6-10.4) 06/15/17 07:11 Phosphorus 3.0 mg/dL (2.5-4.5) 06/15/17 07:11 Magnesium 2.3 mg/dL (1.6-2.3) 03/09/18 07:11 Total Bilirubin 0.9 mg/dL (0.2-1.3) 06/15/17 07:11 AST 58 U/L (17-59) 06/15/17 07:11 ALT 67 U/L (21-72) 06/15/17 07:11 Alkaline Phosphatase 53 U/L (38-126) 06/15/17 07:11 Total Protein 7.5 g/dL (6.3-8.3) 06/15/17 07:11 Albumin 3.8 g/dL (3.5-5.0) 06/15/17 07:11 Globulin 3.7 gm/dL (2.2-3.9) 06/15/17 07:11 Albumin/Globulin Ratio 1.1 (1.0-2.1) 06/15/17 07:11 Lipase 224 U/L (23-300) 06/11/17 15:23 Prostate Specific Ag 1.45 ng/mL (0.00-4.0) 06/14/17 06:58 Free PSA 0.2 ng/mL 06/13/17 06:16 % Free PSA 17 % (calc) (>25) L 06/13/17 06:16 Total PSA 1.2 ng/mL (< or = 4.0) 06/13/17 06:16 Urine Color Yellow (YELLOW) 06/11/17 15:23 Urine Clarity Clear (Clear) 06/11/17 15:23 Urine pH 7.0 (5.0-8.0) 06/11/17 15:23 Ur Specific [place] 1.027 (1.003-1.030) 06/11/17 15:23 Urine Protein Negative mg/dL (NEGATIVE) 06/11/17 15:23 Urine Glucose (UA) Normal mg/dL (Normal) 06/11/17 15:23 Urine Ketones Negative mg/dL (NEGATIVE) 06/11/17 15:23 Urine Blood Negative (NEGATIVE) 06/11/17 15:23 Urine Nitrate Negative (NEGATIVE) 06/11/17 15:23 Urine Bilirubin Negative (NEGATIVE) 06/11/17 15:23 Urine Urobilinogen Normal mg/dL (0.2-1.0) 06/11/17 15:23 Ur Leukocyte Esterase Neg Olivia/uL (Negative) 06/11/17 15:23 Urine WBC (Auto) 1 /hpf (0-5) 06/11/17 15:23 Urine RBC (Auto) 2 /hpf (0-3) 06/11/17 15:23 - Hospital Course Hospital Course: Upon Admission: CC: Abdominal pain HPI: A 61 year old male with a PMHx of Diverticulitis presents to the ED with complaints of deep squeezing LLQ abdominal pain, rated 10/10. The pain woke him up at 2AM last night and persisted today thus he decided to come to ED. He took a tylenol that did not relieve his pain. He states the pain radiates to the suprapubic region. The pain is exacerbated by cough. Last BM 1PM today, normal caliber and normal color. Last meal was yesterday evening at 6PM, (chicken cutlet and mashed potatoes). He endorsed fever and chills. Denied nausea, vomiting, diarrhea. The patient was admitted in late April of this year with a diagnosis of diverticulitis of sigmoid colon. He was managed with antibiotics and discharged with 4 day course of antibiotics (which he completed) . He did not follow up with a PMD or get a colonoscopy, as instructed, due to lack of insurance. Since the discharge the patient has had occasional abdominal pain during defecation. He also admits to dark urine (non-bloody). He denies changes in appetite. In the ED, the patient received Cipro 500 mg, Pepcid 20 mg IV, Ketoralac 20 IV, Flagyl 50 PO, and [address] imaging of the abdomen showed a sigmoid abscess with free peritoneal air. 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 Denies Tobacco and admits to drinking alcohol socially Allergies: Denies, NKDA FamHx: Father has HTN, Mother has heart disease Throughout Hospital Course: Diverticulitis, Diverticular Abscess with perforation Assessment and Plan: General Surgery consult, Dr Gastelum On admission patient met SIRS criteria (tachy, leukocytosis) with confirmed source of infection--> sepsis Will monitor the patient's clinical course and make further recommendations as necessary Patient will benefit from GI evaluation 6 weeks after symptom resolution for elective colonoscopy PICC LINE PLACED: will need Invanz 1 gram x [address] Hines -upon discharge Blood Cx- no growth to date Pending surgery reccs for advancing diet Imaging: CT abd/pelvis w/ IV contrast: There is sigmoid diverticulitis with perforation. There is a 2.3 x 1.7 x 1.5 cm thick walled abscess anterior to the inflamed sigmoid. Meds: IVF w/ NS @ 130cc/hr Meropenem 1gram IVP Q8H (started 06/12/17) Pain management with Morphine and Toradol as needed Florastor 250mg PO BID BPH Assessment and Plan: Offers complaints of frequent urge to urinate, getting up at night to urinate , difficulty urinating and dribbling of urine CT abd/pelvis w/ IV contrast: Prostate is mildly enlarged. PSA- within normal limits Meds: Started on Flomax 0.4mg PO daily Left Nonobstructing Nephrolithiasis Assessment and Plan: CT abd/pelvis w/ IV contrast: There is a non-obstructing left renal stone. UA - no blood This is a brief summary of the patient's hospital course please review EMR for full report. Discharge Exam - Additional Findings Additional findings: - Constitutional Appears: Well, Non-toxic, No Acute Distress - Head Exam Head Exam: ATRAUMATIC, NORMAL INSPECTION - Eye Exam Eye Exam: EOMI Pupil Exam: PERRL - ENT Exam ENT Exam: Mucous Membranes Moist - Neck Exam Neck exam: Positive for: Normal Inspection. Negative for: Lymphadenopathy - Respiratory Exam Respiratory Exam: Clear to Auscultation Bilateral, NORMAL BREATHING PATTERN. absent: Rales, Rhonchi, Wheezes - Cardiovascular Exam Cardiovascular Exam: REGULAR RHYTHM, RRR, +S1, +S2. absent: Bradycardia, Tachycardia, JVD, Systolic Murmur - GI/Abdominal Exam GI & Abdominal Exam: Normal Bowel Sounds, Rebound, Soft, Tenderness ( LLQ) Additional comments: min Soft, non-distended. Non-tympanic. No Velazquez's sign. No McBurney's point tenderness. - Rectal Exam Rectal Exam: Deferred - Extremities Exam Extremities exam: Positive for: full ROM, normal capillary refill, normal inspection, pedal pulses present. Negative for: pedal edema, tenderness - Back Exam Back exam: NORMAL INSPECTION. absent: CVA tenderness (L), CVA tenderness (R), tenderness - Neurological Exam Neurological exam: Alert, Oriented x3 - Psychiatric Exam Psychiatric exam: Normal Affect, Normal Mood - Skin Skin Exam: Intact, Normal Color, Warm Discharge Plan - Discharge Medications Prescriptions: Saccharomyces Boulardi [Florastor] 250 mg PO BID #60 cap Tamsulosin [Flomax] 0.4 mg PO DAILY #30 cap - Follow Up Plan Condition: STABLE Disposition: HOME/ ROUTINE Instructions: Saccharomyces boulardii, Clear Liquid Diet, Diverticulitis (DC), Diverticulitis, Full Liquid Diet, Tamsulosin, Perforation of the GI Tract (DC) Additional Instructions: Please continue with the daily home infusions of Invanz 1gram IV daily for 3 weeks with weekly labs to be drawn to monitor you liver functions. Please continue taking the following medications Florastor 250mg by mouth twice a day 2 hours before you give yourself the antibiotics (this will prevent you from getting an upset stomach from the antibiotics) Flomax 0.4mg by mouth daily for your urinary retention Please follow up with Dr. Kessler (the surgeon) for follow up within 1 week. CONTINUE WITH A LIQUID DIET (soup, broths- NOTHING SOLID) FOR 1 week. After 1 week, then slowly start eating soft diet (mashed potatoes, oatmeal). You will also need to follow up with a kindergarten prep teacher (stomach doctor) for a colonoscopy (please call Dr. Franco's office) to make an appointment - will need to get one in 6-8 weeks. Restrictions for work: YOU WILL NEED TO KEEP THE PICC LINE CLEAN, DRY, AND COVERED WHEN YOU ARE WORKING. YOU CANNOT LIFT HEAVY ITEMS OR DO ANY LIFTING OF ANY KIND. WE WILL PROVIDE YOU WITH A WORK NOTE, BUT IT IS VERY IMPORTANT THAT YOU FOLLOW THESE INSTRUCTIONS. Please follow up with a primary care physician - we left a recommendation for Dr. Engel - but you can follow up with any primary care of your choice. Please take care and be well. --- Contine con las infusiones diarias de Invanz 1gram IV diariamente flaco 3 semanas con los laboratorios semanales que se extraern para supervisar roxana funciones hepticas. Por favor, contine tomando los siguientes medicamentos Florastor 250 mg por va oral dos veces al da 2 horas antes de administrarse los antibiticos (esto evitar molestias estomacales por los antibiticos) Flomax 0.4 mg por va oral al da para roberts retencin urinaria Por favor, juliana un seguimiento con el Dr. Kessler (el cirujano) para el seguimiento dentro de 1 semana. CONTINE CON DAR DIETA LQUIDA (sopa, caldos, NADA SLIDO) POR 1 semana. Despu s de 1 semana, comience lentamente a comer dar dieta blanda (pur de [place]amer[place], tierra). Tambin necesitar hacer un seguimiento con un gastroenterlogo (mdico del est chikis) para dar colonoscopia (llame a la oficina del Dr. Franco) para hacer dar dayana, deber obtener dar en 6-8 semanas. Restricciones para el trabajo: NECESITAR MANTENER LIMPIA, SECA Y CUBIERTA LA LNEA DE PICC CUANDO EST TRABAJANDO. NO PUEDE LEVANTAR ARTCULOS PESADOS NI HACER ALZA DE NINGN TIPO. LE OFRECEREMOS DAR NOTA DE TRABAJO, JAIME ES MUY IMPORTANTE QUE SIGA ESTAS INSTRUCCIONES. Realice un seguimiento con un mdico de atencin primaria, dejamos dar recomendacin para el Dr. Engel, jaime puede realizar el seguimiento con la atenci n primaria que elija. Por favor cudate y estate josy. Referrals: Brandon Gastelum MD [Medical Doctor] - Tucker Franco MD [Staff Provider] - Mal Engel Jr., MD [Medical Doctor] - <Stanley Lopez - Last Filed: 06/15/17 16:38> Provider - Provider Date of Admission: 06/11/17 19:31 Attending physician: Stanley Lopez MD Hospital Course - Lab Results Lab Results: Micro Results 06/11/17 18:30 Blood Blood Culture - Preliminary NO GROWTH AFTER 3 DAYS 06/11/17 19:00 Blood Blood Culture - Preliminary NO GROWTH AFTER 3 DAYS Most Recent Lab Values WBC 6.6 K/uL (4.8-10.8) 06/15/17 07:11 RBC 5.07 Mil/uL (4.40-5.90) 06/15/17 07:11 Hgb 15.4 g/dL (12.0-18.0) 06/15/17 07:11 Hct 44.4 % (35.0-51.0) 06/15/17 07:11 MCV 87.7 fL (80.0-94.0) 06/15/17 07:11 MCH 30.4 pg (27.0-31.0) 06/15/17 07:11 MCHC 34.6 g/dL (33.0-37.0) 06/15/17 07:11 RDW 13.8 % (11.5-14.5) 06/15/17 07:11 Plt Count 234 K/uL (130-400) 06/15/17 07:11 MPV 9.4 fL (7.2-11.7) 06/15/17 07:11 Neut % (Auto) 54.4 % (50.0-75.0) 06/15/17 07:11 Lymph % (Auto) 26.3 % (20.0-40.0) 06/15/17 07:11 Cooper % (Auto) 15.0 % (0.0-10.0) H 06/15/17 07:11 Eos % (Auto) 3.4 % (0.0-4.0) 06/15/17 07:11 Baso % (Auto) 0.9 % (0.0-2.0) 06/15/17 07:11 Neut # (Auto) 3.6 K/uL (1.8-7.0) 06/15/17 07:11 Lymph # (Auto) 1.7 K/uL (1.0-4.3) 06/15/17 07:11 Cooper # (Auto) 1.0 K/uL (0.0-0.8) H 06/15/17 07:11 Eos # (Auto) 0.2 K/uL (0.0-0.7) 06/15/17 07:11 Baso # (Auto) 0.1 K/uL (0.0-0.2) 06/15/17 07:11 Neutrophils % (Manual) 82 % (50-75) H 06/13/17 11:23 Lymphocytes % (Manual) 7 % (20-40) L 06/13/17 11:23 Monocytes % (Manual) 11 % (0-10) H 06/13/17 11:23 Platelet Estimate Normal (NORMAL) 06/13/17 11:23 PT 15.0 SECONDS (9.7-12.2) H 06/11/17 20:30 INR 1.3 06/11/17 20:30 APTT 30 SECONDS (21-34) 06/11/17 20:30 Sodium 140 mmol/L (132-148) 06/15/17 07:11 Potassium 4.2 mmol/L (3.6-5.2) 06/15/17 07:11 Chloride 102 mmol/L (98-107) 06/15/17 07:11 Carbon Dioxide 23 mmol/L (22-30) 06/15/17 07:11 Anion Gap 19 (10-20) 06/15/17 07:11 BUN 12 mg/dL (9-20) 06/15/17 07:11 Creatinine 0.9 mg/dL (0.8-1.5) 06/15/17 07:11 Est GFR ( Amer) > 60 06/15/17 07:11 Est GFR (Non-Af Amer) > 60 06/15/17 07:11 Random Glucose 80 mg/dL (75-110) 06/15/17 07:11 Calcium 9.4 mg/dl (8.6-10.4) 06/15/17 07:11 Phosphorus 3.0 mg/dL (2.5-4.5) 06/15/17 07:11 Magnesium 2.3 mg/dL (1.6-2.3) 06/15/17 07:11 Total Bilirubin 0.9 mg/dL (0.2-1.3) 06/15/17 07:11 AST 58 U/L (17-59) 06/15/17 07:11 ALT 67 U/L (21-72) 06/15/17 07:11 Alkaline Phosphatase 53 U/L (38-126) 06/15/17 07:11 Total Protein 7.5 g/dL (6.3-8.3) 06/15/17 07:11 Albumin 3.8 g/dL (3.5-5.0) 06/15/17 07:11 Globulin 3.7 gm/dL (2.2-3.9) 06/15/17 07:11 Albumin/Globulin Ratio 1.1 (1.0-2.1) 06/15/17 07:11 Lipase 224 U/L (23-300) 06/11/17 15:23 Prostate Specific Ag 1.45 ng/mL (0.00-4.0) 06/14/17 06:58 Free PSA 0.2 ng/mL 06/13/17 06:16 % Free PSA 17 % (calc) (>25) L 06/13/17 06:16 Total PSA 1.2 ng/mL (< or = 4.0) 06/13/17 06:16 Procalcitonin 0.10 NG/ML (0.19-0.49) L 06/15/17 07:11 Urine Color Yellow (YELLOW) 06/11/17 15:23 Urine Clarity Clear (Clear) 06/11/17 15:23 Urine pH 7.0 (5.0-8.0) 06/11/17 15:23 Ur Specific [place] 1.027 (1.003-1.030) 06/11/17 15:23 Urine Protein Negative mg/dL (NEGATIVE) 06/11/17 15:23 Urine Glucose (UA) Normal mg/dL (Normal) 06/11/17 15:23 Urine Ketones Negative mg/dL (NEGATIVE) 06/11/17 15:23 Urine Blood Negative (NEGATIVE) 06/11/17 15:23 Urine Nitrate Negative (NEGATIVE) 06/11/17 15:23 Urine Bilirubin Negative (NEGATIVE) 06/11/17 15:23 Urine Urobilinogen Normal mg/dL (0.2-1.0) 06/11/17 15:23 Ur Leukocyte Esterase Neg Olivia/uL (Negative) 06/11/17 15:23 Urine WBC (Auto) 1 /hpf (0-5) 06/11/17 15:23 Urine RBC (Auto) 2 /hpf (0-3) 06/11/17 15:23 Attending/Attestation - Attestation I have personally seen and examined this patient.: Yes I have fully participated in the care of the patient.: Yes I have reviewed all pertinent clinical information, including history, physical exam and plan: Yes Notes (Text): 06/15/17 16:38 Patient was seen and examined shortly after the resident. Exam, assessment and plan and discharge instructions were gone over with the resident. Stanley Lopez D.O.
[2017-06-15] MEDS ORDERED: Influenza Vaccine 60 mcg/0.5 mL SYR (4YR UP) IM ONE (10:00)
[2017-06-15] MEDS: Enoxaparin 40 mg Syringe SC SCH ×2 (10:01→10:02)
[2017-06-15] MEDS: Saccharomyces Boulardi 250 mg Cap PO SCH (10:01)
== END 2017-06-15 12:25 | disposition home or self-care (01) | DRG 901 ==
LOC: C.ER 14:34 → C.9E 19:31 → C.3T 21:32
PROVIDERS: ADMIT Family Medicine; ATTEND Family Medicine
PROC: 02HV33Z Insertion of Infusion Device into Superior Vena Cava, Percutaneous Approach (ICD-10-PCS; principal; 2017-06-12)
PROC: B518ZZA Fluoroscopy of Superior Vena Cava, Guidance (ICD-10-PCS; 2017-06-12)
DX: A41.9 Sepsis, unspecified organism (principal); K57.20 Diverticulitis of large intestine with perforation and abscess without bleeding; N18.9 Chronic kidney disease, unspecified; N20.0 Calculus of kidney; N40.0 Benign prostatic hyperplasia without lower urinary tract symptoms; Z87.442 Personal history of urinary calculi

== ENCOUNTER 2017-08-09 06:18 | Day surgery (SDC) | payer BC ==
[2017-08-09] MEDS ORDERED: Propofol 10 mg/ml Inj (20 ML) ONE (08:04)
[2017-08-09 08:55] VITALS: TEMP 97.9
[2017-08-09 09:18] VITALS: RESP 12; O2SAT 98
[2017-08-09 09:27] VITALS: BP 117/68; PULSE 60
== END 2017-08-09 09:50 | disposition home or self-care (01) ==
LOC: C.ENDO 06:18
PROVIDERS: ATTEND Internal Medicine Gastroenterology
DX: Z12.11 Encounter for screening for malignant neoplasm of colon (principal); D12.4 Benign neoplasm of descending colon; D12.8 Benign neoplasm of rectum; K57.30 Diverticulosis of large intestine without perforation or abscess without bleeding
CPT/HCPCS: 45380; 45384; 88305; J2704